=== PATIENT | male | born 1935 | race Caucasian/White ===

== ENCOUNTER 2016-07-11 06:26 | Day surgery (SDC) | payer OTHER ==
[~2016-07-11] VITALS: Ht 170.2 cm; Wt 74.8 kg
[~2016-07-11 06:26] MED LIST: 1-ME1LIQ PO; LANTUS2P SC; LEVO.025 PO; METO25 PO; PENT400 PO; SIMV20 PO
[2016-07-11] MEDS ORDERED: DEXTROSE 5% IV SCH ×2 (07:15)
[2016-07-11] MEDS ORDERED: WATE IV SCH ×2 (07:15)
[2016-07-11] MEDS ORDERED: SODIUM BICARBONATE IV SCH ×2 (07:15)
[2016-07-11] MEDS ORDERED: DO NOT GIVE AM GLUCOPHAGE, GLUCOPHAGE XR, GLIPIZIDE, GLYBURIDE OR AVANDAMET XX PRN (07:15)
[2016-07-11] MEDS ORDERED: TRAZ100T4 PO (07:16)
[2016-07-11] MEDS ORDERED: CALC1CAP PO (07:16)
[2016-07-11] MEDS ORDERED: INSU1INJ18 SQ (07:16)
[2016-07-11] MEDS ORDERED: PENT400T PO (07:16)
[2016-07-11 07:23] VITALS: BP 179/68; PULSE 69; RESP 16; TEMP 97.9; O2SAT 98
[2016-07-11 07:35] LABS: AUTOMATED NEUTROPHIL # 3.2 TH/MM3 (1.8-7.7); BASOPHIL % 0.8 % (0.0-2.0); EOSINOPHIL # 0.1 TH/MM3 (0-0.4); EOSINOPHIL % 2.6 % (0.0-4.0); HEMATOCRIT 32.3 % (39.0-51.0); HEMO FLAGS DIFF FINAL; LYMPH % 28.9 % (9.0-44.0); LYMPHOCYTE # 1.6 TH/MM3 (1.0-4.8); MEAN CELL VOLUME 94.7 FL (80.0-100.0); MEAN CORPUSCULAR HEMOGLOBIN 32.3 PG (27.0-34.0); MEAN CORPUSCULAR HGB CONC 34.1 % (32.0-36.0); MONO % 9.5 % (0.0-8.0); NEUT % 58.2 % (16.0-70.0); PLATELET COUNT 116 TH/MM3 (150-450); RED BLOOD COUNT 3.41 MIL/MM3 (4.50-5.90); RED CELL DISTRIBUTION WIDTH 14.8 % (11.6-17.2); WHITE BLOOD COUNT 5.5 TH/MM3 (4.0-11.0)
[2016-07-11 07:44] LABS: APTT (PATIENT) 25.2 SEC (24.3-30.1); PROTHROMBIN TIME - PATIENT 10.7 SEC (9.8-11.6)
[2016-07-11 07:49] LABS: BICARBONATE 30.4 MEQ/L (21.0-32.0)
[2016-07-11] MEDS ORDERED: HEPARIN-NS/PF INJ 500 ML ONE (09:27)
[2016-07-11] MEDS ORDERED: MIDAZOLAM HCL 2 MG/2 ML VIAL ONE (09:27)
[2016-07-11] MEDS ORDERED: HEPARIN SODIUM - IV 10,000 UNITS/10 ML VIAL ONE (09:27)
[2016-07-11] MEDS ORDERED: IOHEXOL 350 MG/ML 100 ML BTL (for Cath Lab) OTHER ONE (10:00)
[2016-07-11] MEDS ORDERED: ONDANSETRON HCL 4 MG/2 ML VIAL IV PRN (13:00)
[2016-07-11] MEDS ORDERED: ENALAPRILAT 1.25 MG/ML VIAL IV PRN (13:00)
[2016-07-11] MEDS ORDERED: LORazepam 2 MG/ML VIAL IVP PRN (13:00)
[2016-07-11] MEDS ORDERED: oxyCODONE/ACETAMINOPHEN 5 MG/325 MG TAB PO PRN ×2 (13:00)
[2016-07-11] MEDS ORDERED: METOCLOPRAMIDE HCL 10 MG/2 ML VIAL IVS PRN (13:00)
[2016-07-11] MEDS ORDERED: SODIUM NITROPRUSSIDE 50 MG/250 ML D5W IV SCH ×2 (13:00)
[2016-07-11] MEDS ORDERED: LIDOCAINE HCL 1% 50 ML VIAL INFIL PRN (13:00)
[2016-07-11] MEDS ORDERED: LABETALOL HCL 100 MG/20 ML VIAL IVP PRN (13:00)
[2016-07-11] MEDS ORDERED: HOLD GLUCOPHAGE, GLUCOPHAGE XR, AND AVANDAMET XX PRN (13:00)
[2016-07-11] MEDS ORDERED: ATROPINE SULFATE 1 MG/ML VIAL IV PUSH PRN (13:00)
[2016-07-11] MEDS ORDERED: cloNIDine HCL 0.1 MG TAB PO PRN (13:00)
[2016-07-11] MEDS ORDERED: SODIUM CHLOR 0.9% 250 ML IV PRN (13:00)
[2016-07-11] MEDS ORDERED: POTASSIUM CHLORIDE 20 MEQ CONTROLLED RELEASE TAB PO PRN (13:00)
--- NOTE | 2016-07-11 13:45 | MA ---
cc: NAIMA PICKARD DATE: 07/11/2016 PREOPERATIVE DIAGNOSIS Increased velocities on a right upper extremity fistulogram in the basilic vein concerning for narrowing with some difficulties with flow rates in the hemodialysis center. POSTOPERATIVE DIAGNOSIS Increased velocities on a right upper extremity fistulogram in the basilic vein concerning for narrowing with some difficulties with flow rates in the hemodialysis center. PROCEDURE 1. Right upper extremity fistulogram. 2. Balloon angioplasty right basilic vein with a 6 mm x 40 mm and then an 8 mm x 40 mm [employer]CHIT[employer] balloon angioplasty. SURGEON Kate IV FLUIDS 500 cc of sodium bicarb. ESTIMATED BLOOD LOSS Minimal. URINE OUTPUT Not calculated. DETAILS OF PROCEDURE The patient's right upper extremity was prepped and draped in a sterile fashion after being under moderate sedation. I got access to the right basilic vein using a 21-gauge needle. I exchanged for a micropuncture catheter and then I shot a fistulogram. Once I shot my fistulogram through my 4-Greek micropuncture catheter, I was able to see that the outflow basilic vein had a narrowing in the area that was found by duplex ultrasound in my office. It should be noted that the right innominate and subclavian as well as the SVC appeared to be widely patent. The arterial anastomosis with occlusion of the outflow vein at the level of the brachial artery appeared to be widely patent as well. I gave the patient approximately 3000 units of heparin. I performed balloon angioplasty with a 6 mm x 4 cm, then an 8 mm x 4 cm long [employer] angioplasty balloon. Afterwards there was still a mild diffuse tapered narrowing but there was a good thrill in the fistula and there was no extravasation or flow-limiting dissection. Based on this I removed my sheath and placed a 2-0 Vicryl pursestring suture around my sheath and then applied pressure with a dry dressing. The patient tolerated the procedure well and was taken to the PACU at the end of the case. DO DAPHNIE Snider/TERESITA /10:22 AM /1:37 PM
[2016-07-12] MEDS ORDERED: ASPIRIN EC 81 MG TABEC PO SCH (09:00)
== END 2016-07-11 12:45 | disposition home or self-care (01) ==
LOC: HDOC 06:26 → HDIC 06:27 → HDOC 12:45
PROVIDERS: ATTEND Surgery
DX: T82.858A Stenosis of other vascular prosthetic devices, implants and grafts, initial encounter (principal); N18.6 End stage renal disease; Z99.2 Dependence on renal dialysis
CPT/HCPCS: 37248; 75820; 80048; 85025; 85610; 85730; C1725; C1769; C1893; J1644; J2250; J3010; J7070; Q9967

== ENCOUNTER 2017-01-23 08:58 | Inpatient (IN) | payer OTHER, MEDICARE ==
[2017-01-23] VITALS (8 sets, daily range): BP systolic 148–151; BP diastolic 60–67; PULSE 62–74; RESP 14–16; TEMP 98.2–98.8; O2SAT 99
[~2017-01-23 08:58] MED LIST changes: -1-ME1LIQ PO; +CALC1CAP PO; +INSU1INJ18 SQ; -LANTUS2P SC; -LEVO.025 PO; -METO25 PO; -PENT400 PO; +PENT400T PO; -SIMV20 PO; +TRAZ100T4 PO
[2017-01-23] MEDS ORDERED: HYDROmorphone HCL 2 MG TAB PO PRN (17:00)
[2017-01-23] MEDS ORDERED: GLUCAGON 1 MG/ML VIAL OTHER PRN ×3 (17:15→18:15)
[2017-01-23] MEDS ORDERED: DEXTROSE 50% IN WATER 50 ML VIAL(D50) IV PRN ×2 (17:15→17:45)
[2017-01-23] MEDS ORDERED: PANTOPRAZOLE SOD 20 MG DELAYED RELEASE TAB PO ONE (18:00)
[2017-01-23] MEDS ORDERED: DEXTROSE 50% IN WATER 50 ML VIAL(D50) IV PUSH PRN (18:15)
[2017-01-23] MEDS: HEPARIN-D5W INJ 250 ML IV SCH (18:27)
--- NOTE | 2017-01-23 18:53 | HHI.HP ---
History of Present Illness Chief Complaint: Left Lower Extremity Pain Right LE with discolored Toes and pain History of Present Illness Mr. Sam is a 81/ Male who arrives as a Transfer from [facility]. Pt and daughter c/o LLE pain with discoloration times 1 month that worsened over the past few days. Daughter reported she brought her father to the emergency department ([facility]) because he was unable to ambulate due to pain. Pt with a PMH of DM,PVD, Kidney Failure (HD) and HTN. Pt reported he had a recent stent placed in is LLE 1M ago. (Darlene Means) Past/Family/Social History Past Medical History HTN PVD DM Kidney Failure (HD- T, Th and Sat) Past Surgical History Hip Surgery Social History Pt denies tobacco, alcohol or illicit drug usage Family History Leukemia DM HTN Hypercholesteremia (Darlene Means) Home Medications Reported Medications Trazodone 100 Mg [id number] Mg PO HS #30 TAB Ref 0 07/11/16 Pentoxifylline ER 400 Mg [id number] Mg PO BID #60 TAB Ref 0 07/11/16 Insulin Glargine (Basaglar Kwikpen)100 Unit/Ml Pen1 Units SQ DAILY #5 PEN Ref 0 07/11/16 Calcium Acetate (Phosphate Binder) 667 Mg [id number] Mg PO TID #90 CAP Ref 0 07/11/16 Coded Allergies: No Known Allergies (Unverified , 07/11/16) Review of Systems Integumentary: COMPLAINS OF: Abnormal pigmentation (Dusky L ankle to foot/ R toes w/ red discoloration) (Darlene Means) Physical Exam Neuro: Pt A&OX3 GCS15 Neck: No JVD Heart: RRR +S1,S2 Lungs: CTA Abdomen: S/NT Vascular: Palpable bilat femoral pulses Non Palpable bilat DP/PT Faint Monophasic Left DP, NO PT heard via Doppler Monophasic Right DP/ faint monophasic PT heard via Doppler LLE cool to touch/painful at rest and w/ movement/ Dusky pale discoloration from ankle to foot RLE warm to touch with reddened discoloration to toes (Darlene Means) Assessment and Plan Assessment: (1) Ischemia of lower extremity Status: Acute Plan Pt presents with LLE ischemia for 1M that worsened over the past few days. Plan Discussed Angiogram with patient and daughter Pt and daughter agreed w/ plan Questions answered Consents signed and placed in the chart Pt scheduled for an Angiogram w/ Dr. Vega tomorrow NPO after midnight Continue Heparin Drip Continue Pain Management Darlene ZIMMER [facility] [phone] (Darlene Means) Plan L LE critical limb ischemia. Pt with PAD and ESRD, on HD. L LE angiogram from OSH over a month ago suggested distal AT target. Will admit, consult nephrology and plan angiogram after HD tomorrow (Monday) with potential distal bypass Monday. Pt and his daughter aware of plan. Nabeel Vega MD FACS [employer] security rep [facility] - Heart and Vascular Surgery at [facility] [phone] (Nabeel Vega MD) Darlene Means Jan 23, 2017 18:53 Nabeel Vega MD Jan 23, 2017 19:36
[2017-01-23] MEDS: MEDIUM DOSE INSULIN NOVOLIN REGULAR SUPPLEMENTAL SCALE SQ SCH (21:00)
--- NOTE | 2017-01-23 21:15 | RADRPT ---
EXAM DATE/TIME: 01/23/2017 19:53 [facility] COMPARISON: No previous studies available for comparison. INDICATIONS : For potential graft; post graft. MEDICAL HISTORY : Hypertension. GERD. Renal failure. Dialysis. Diabetic. PAD. SURGICAL HISTORY : Right hip pinning. ENCOUNTER: Initial ACUITY: 1 day PAIN SCORE: 0/10 LOCATION: Bilateral leg. TECHNIQUE: Venous ultrasound of the left and right leg was performed from the inguinal ligament to the proximal calf. Real-time, color Doppler and spectral tracing, compression and augmentation techniques were us ed. FINDINGS: RIGHT LEG: There is normal compressibility of the deep venous system from the inguinal region to the proximal ca lf. No echogenic clot is seen in the lumen of the common femoral, femoral, popliteal, and posterior tibial veins. There is a normal response of the venous system to proximal and distal augmentation an d respiration. LEFT LEG: There is normal compressibility of the deep venous system from the inguinal region to the proximal ca lf. No echogenic clot is seen in the lumen of the common femoral, femoral, popliteal, and posterior tibial veins. There is a normal response of the venous system to proximal and distal augmentation an d respiration. CONCLUSION: The study is negative for deep venous thrombosis bilateral lower extremity. Vladislav Maria MD on January 23, 2017 at 21:13 Board Certified Radiologist. This report was verified electronically.
[2017-01-23] MEDS: DOCUSATE SODIUM 100 MG CAP PO SCH (22:38)
[2017-01-23] MEDS: ATORVASTATIN 40 MG TAB PO SCH (22:38)
--- NOTE | 2017-01-23 23:11 | RADRPT ---
EXAM DATE/TIME: 01/23/2017 19:59 [facility] COMPARISON: No previous studies available for comparison. INDICATIONS : For potential graft, post Graft. MEDICAL HISTORY : Hypertension. GERD. Renal failure. Dialysis. Diabetic. PAD. SURGICAL HISTORY : Right hip pinning. ENCOUNTER: Initial ACUITY: 1 day PAIN SCORE: 0/10 LOCATION: Bilateral leg. GREATER SAPHENOUS VEIN THIGH: PROXIMAL: Right 3 mm Left 7 mm MID: Right 3 mm Left 4 mm DISTAL: Right 2 mm Left 4 mm CALF: PROXIMAL: Right 1 mm Left 3 mm MID: Right 1 mm Left 3 mm DISTAL: Right 2 mm Left 3 mm FINDINGS: The venous system of the lower extremities are patent by color Doppler imaging. Measurements of the leg veins (in mm) are listed above. CONCLUSION: Venous mapping exam as described. Tony Dutton MD on January 23, 2017 at 23:09 Board Certified Radiologist. This report was verified electronically.
[2017-01-24] VITALS (17 sets, daily range): BP systolic 143–173; BP diastolic 62–71; PULSE 58–86; RESP 14–22; TEMP 97.3–98.8; O2SAT 93–99
[2017-01-24 01:24] LABS: HEMATOCRIT 26.8 % (39.0-51.0); MEAN CELL VOLUME 101.6 FL (80.0-100.0); MEAN CORPUSCULAR HGB CONC 33.5 % (32.0-36.0); PLATELET COUNT 117 TH/MM3 (150-450); RED BLOOD COUNT 2.64 MIL/MM3 (4.50-5.90); RED CELL DISTRIBUTION WIDTH 15.3 % (11.6-17.2); REVIEW FLAG FINAL; WHITE BLOOD COUNT 5.2 TH/MM3 (4.0-11.0)
[2017-01-24 01:40] LABS: PROTHROMBIN TIME - PATIENT 11.1 SEC (9.8-11.6)
[2017-01-24 02:01] LABS: BICARBONATE 25.8 MEQ/L (21.0-32.0); POTASSIUM 5.7 MEQ/L (3.5-5.1)
[2017-01-24] MEDS: MEDIUM DOSE INSULIN NOVOLIN REGULAR SUPPLEMENTAL SCALE SQ SCH ×4 (05:55→22:03)
[2017-01-24] MEDS: ASPIRIN 325 MG TAB PO SCH (08:15)
[2017-01-24] MEDS: DOCUSATE SODIUM 100 MG CAP PO SCH ×2 (08:15→21:52)
[2017-01-24 08:45] LABS: APTT (PATIENT) 129.8 SEC (24.3-30.1)
[2017-01-24] MEDS ORDERED: SODIUM CHLOR 0.9% 1000 ML INJ 1,000 ML IV PRN ×2 (11:42)
--- NOTE | 2017-01-24 11:42 | PD.CONS ---
HPI Service Nephrology Consult Requested By Dr. Veag Reason for Consult ESRD. Dialysis management Primary Care Physician Non-Staff History of Present Illness The patient is a 81 yo male who was transferred from [facility] to this facility today for vascular intervention of LLE. According to records from [facility] , he had a stent placed in RLE in November with angioplasty of LLE that was unsuccessful. He was treated medically as outpatient, but he returned to the ED at [facility] with complaints of worsening pain. He has subsequently been transferred to this facility for vascular surgery to attempt to salvage LLE. We have been consulted for dialysis management. Dialyzes TTS via [facility] in [place] with primary packager hand, Dr. Sterling. Last HD was Monday at [facility]. Surgery was supposed to be scheduled today, but has been canceled until tomorrow. The patient voiced no complaints today, but there is a language barrier. Review of Systems Cardiovascular: COMPLAINS OF: Claudication Past Family Social History Allergies: Coded Allergies: No Known Allergies (Unverified , 07/11/16) Past Medical History ESRD on HD TTS DM HTN Severe PVD Anemia BPH HLD Past Surgical History AVF formation Hipe replacement Stenting of RLE Reported Medications Reported Meds & Active Scripts Active Reported Trazodone (Trazodone HCl) 100 Mg Tab 100 Mg PO HS Pentoxifylline ER (Pentoxifylline) 400 Mg Tab 400 Mg PO BID Basaglar Kwikpen (Insulin Glargine) 100 Unit/Ml Pen 1 Units SQ DAILY Calcium Acetate (Phosphate Binder) 667 Mg Cap 667 Mg PO TID Active Ordered Medications Current Medications Medications (Trade) Dose Ordered Sig/Marta Route Start Time Stop Time Status Last Admin (Roxicodone) 5 mg Q4H PRN PO 01/23/17 17:00 (Dilaudid) 2 mg Q4H PRN PO 01/23/17 17:00 (Morphine Inj) 2 mg Q1H PRN IV 01/23/17 17:00 (Lipitor) 40 mg HS PO 01/23/17 21:00 01/23/17 22:38 Aspirin 325 mg 325 mg DAILY PO 01/24/17 09:00 01/24/17 08:15 (Heparin-D5W Inj) 250 ml @ 0 mls/hr TITRATE IV 01/23/17 17:45 01/23/17 18:27 (Colace) 100 mg BID PO 01/23/17 21:00 01/30/17 20:59 01/24/17 08:15 (D50w (Vial) Inj) 50 ml UNSCH PRN IV PUSH 01/23/17 18:15 (Glucagon Inj) 1 mg UNSCH PRN OTHER 01/23/17 18:15 Family History DM, HTN Social History Lives in [place] Denies any tobacco, illicits, or EtOH abuse Physical Exam Vital Signs Vital Signs Date Time Temp Pulse Resp B/P Pulse Ox O2 Delivery O2 Flow Rate FiO2 01/24/17 11:00 97.3 65 20 154/69 98 01/24/17 11:00 65 01/24/17 10:00 65 01/24/17 09:00 58 01/24/17 08:00 70 01/24/17 07:00 98.0 73 20 152/64 98 01/24/17 04:00 98.6 72 14 146/68 99 01/24/17 02:00 58 01/24/17 01:00 62 01/24/17 00:00 97.9 68 14 143/62 97 01/24/17 00:00 69 01/23/17 23:00 74 01/23/17 22:00 64 01/23/17 21:00 62 01/23/17 20:00 70 01/23/17 20:00 98.8 64 14 148/60 99 01/23/17 19:00 74 01/23/17 18:00 66 01/23/17 17:00 68 01/23/17 16:10 98.2 74 16 151/67 99 01/23/17 16:10 73 Physical Exam GENERAL: Comfortable, laying in bed. NAD SKIN: Warm and dry. HEAD: Atraumatic. Normocephalic. EYES: Pupils equal and round. No scleral icterus. No injection or drainage. ENT: No nasal bleeding or discharge. Mucous membranes pink and moist. NECK: Trachea midline. No JVD. CARDIOVASCULAR: Regular rate and rhythm. AVF present RUE. Dusky appearing LLE. RESPIRATORY: No accessory muscle use. Clear to auscultation. Breath sounds equal bilaterally. GASTROINTESTINAL: Abdomen soft, non-tender, nondistended. Hepatic and splenic margins not palpable. MUSCULOSKELETAL: Extremities without clubbing, cyanosis, or edema. No obvious deformities. NEUROLOGICAL: Awake and alert. No obvious cranial nerve deficits. Normal speech. PSYCHIATRIC: Appropriate mood and affect; insight and judgment normal. Laboratory Laboratory Tests Test 01/24/17 01/24/17 01:12 07:55 White Blood Count 5.2 Red Blood Count 2.64 Hemoglobin 9.0 Hematocrit 26.8 Mean Corpuscular Volume 101.6 Mean Corpuscular Hemoglobin 34.0 Mean Corpuscular Hemoglobin 33.5 Concent Red Cell Distribution Width 15.3 Platelet Count 117 Mean Platelet Volume 9.6 Prothrombin Time 11.1 Prothromb Time International 1.0 Ratio Activated Partial 62.0 129.8 Thromboplast Time Sodium Level 140 Potassium Level 5.7 Chloride Level 102 Carbon Dioxide Level 25.8 Anion Gap 12 Blood Urea Nitrogen 50 Creatinine 9.31 Estimat Glomerular Filtration 5 Rate Random Glucose 149 Calcium Level 8.6 Result Diagram: 01/24/17 0112 01/24/17 0112 Imaging Last Impressions Lower Extremity Ultrasound 01/23/17 0000 Signed Impressions: Service Date/Time: Monday, January 23, 2017 19:53 - CONCLUSION: The study is negative for deep venous thrombosis bilateral lower extremity. Vladislav Maria MD Assessment and Plan Problem List: (1) ESRD (end stage renal disease) on dialysis Plan: The patient typically dialyzes on TTS for 3h sessions. HD as ordered today. We would typically like dialysis after vascular procedure, but given his hyperkalemia, will require HD PRIOR to surgery. Discussed with RN who informed vascular-->surgery rescheduled until 01/25 Will plan for short HD session tomorrow after procedure (pulp machine operator contacted) Continue on phosphate binders Check iPTH and Vit D Medications should be adjusted for the patient's ESRD. Avoid gadolinium. (2) Ischemia of lower extremity Plan: Management as per vascular surgery (3) Diabetes mellitus Plan: Management as per primary (4) Anemia Plan: Epogen with tx as ordered Nasima Torres Jan 24, 2017 11:42
[2017-01-24] MEDS ORDERED: SODIUM CHLORIDE 0.9% FLUSH 10 ML FLUSH IV FLUSH PRN (11:45)
[2017-01-24] MEDS ORDERED: cloNIDine HCL 0.1 MG TAB PO PRN (11:45)
[2017-01-24] MEDS ORDERED: ACETAMINOPHEN 325 MG TAB PO PRN (11:45)
[2017-01-24] MEDS ORDERED: GELATIN 12 MM/7 MM FOAM TOP PRN (11:45)
[2017-01-24] MEDS ORDERED: NITROGLYCERIN 0.4 MG SL 25 TABS/BTL SL PRN (11:45)
[2017-01-24] MEDS ORDERED: ONDANSETRON HCL 4 MG/2 ML VIAL IV PRN (11:45)
[2017-01-24] MEDS ORDERED: diphenhydrAMINE HCL 25 MG CAP PO PRN (11:45)
[2017-01-24] MEDS ORDERED: ALBUMIN HUMAN 25% 25 GM/100 ML BAGP IV PRN (11:45)
[2017-01-24] MEDS ORDERED: MANNITOL 12.5 GM/50 ML VIAL IV PRN (11:45)
[2017-01-24] MEDS ORDERED: HEPARIN SODIUM - IV 10,000 UNITS/10 ML VIAL IVF PRN (11:45)
--- NOTE | 2017-01-24 11:46 | PD.VS.PN ---
Subjective Subjective/Hospital Course Pt in bed resting comfortably Denies pain Objective Vitals/I&O Date Time Temp Pulse Resp B/P Pulse Ox O2 Delivery O2 Flow Rate FiO2 01/24/17 11:00 97.3 65 20 154/69 98 01/24/17 11:00 65 01/24/17 10:00 65 01/24/17 09:00 58 01/24/17 08:00 70 01/24/17 07:00 98.0 73 20 152/64 98 01/24/17 04:00 98.6 72 14 146/68 99 01/24/17 02:00 58 01/24/17 01:00 62 01/24/17 00:00 97.9 68 14 143/62 97 01/24/17 00:00 69 01/23/17 23:00 74 01/23/17 22:00 64 01/23/17 21:00 62 01/23/17 20:00 70 01/23/17 20:00 98.8 64 14 148/60 99 01/23/17 19:00 74 01/23/17 18:00 66 01/23/17 17:00 68 01/23/17 16:10 98.2 74 16 151/67 99 01/23/17 16:10 73 Physical Exam GENERAL: A&OX3, GCS15, Lao speaking 81/M CARDIOVASCULAR: RRR RESPIRATORY: BS CTA Pt w/ Palpable bilat femoral pulses Non Palpable bilat DP/PT Faint Monophasic Left DP, NO PT heard via Doppler Monophasic Right DP/ faint monophasic PT heard via Doppler LLE cool to touch/painful at rest and w/ movement/ Dusky pale discoloration from ankle to foot RLE warm to touch with reddened discoloration to toes Laboratory Laboratory Tests Test 01/24/17 01/24/17 01:12 07:55 White Blood Count 5.2 Red Blood Count 2.64 Hemoglobin 9.0 Hematocrit 26.8 Mean Corpuscular Volume 101.6 Mean Corpuscular Hemoglobin 34.0 Mean Corpuscular Hemoglobin 33.5 Concent Red Cell Distribution Width 15.3 Platelet Count 117 Mean Platelet Volume 9.6 Prothrombin Time 11.1 Prothromb Time International 1.0 Ratio Activated Partial 62.0 129.8 Thromboplast Time Sodium Level 140 Potassium Level 5.7 Chloride Level 102 Carbon Dioxide Level 25.8 Anion Gap 12 Blood Urea Nitrogen 50 Creatinine 9.31 Estimat Glomerular Filtration 5 Rate Random Glucose 149 Calcium Level 8.6 Imaging Last 48 hours Impressions Lower Extremity Ultrasound 01/23/17 0000 Signed Impressions: Service Date/Time: Monday, January 23, 2017 19:53 - CONCLUSION: The study is negative for deep venous thrombosis bilateral lower extremity. Vladislav Maria MD Lower Extremity Ultrasound 01/23/17 0000 Signed Impressions: Service Date/Time: Monday, January 23, 2017 19:59 - CONCLUSION: Venous mapping exam as described. Tony Dutton MD Assessment and Plan Assessment: (1) Ischemia of lower extremity Status: Acute Plan L LE critical limb ischemia. Pt with PAD and ESRD, on HD. L LE angiogram from OSH over a month ago suggested distal AT target Plan HD today Angiogram scheduled for tomorrow am NPO after midnight Continue pain management Continue Heparin drip Darlene ZIMMER [facility]/[employer] [phone] Darlene Means Jan 24, 2017 11:45
[2017-01-24] MEDS: CALCIUM ACETATE 667 MG CAP PO SCH ×2 (13:00→17:59)
[2017-01-24] MEDS: HEPARIN-D5W INJ 250 ML IV SCH (14:10)
[2017-01-24 14:22] LABS: TRANSFERRIN IRON PROFILE 134 MG/DL (200-360)
[2017-01-24 14:25] LABS: FERRITIN 792 NG/ML (26-388)
--- NOTE | 2017-01-24 14:43 | RADRPT ---
EXAM DATE/TIME: 01/23/2017 00:00 [facility] COMPARISON: No previous studies available for comparison. INDICATIONS : Peripheral artery disease TECHNIQUE: Four-cuff ankle and brachial pressures were obtained. Pulse cuff waveform tracings of the ankles were recorded, and ankle-brachial indices were calculated. PRESSURES (mmHg): Brachial (arm): Right no bp/sticks Left 152 Ankle: Right 45 Left 29 HEATHER: Right 0.30 Left 0.19 TBI: Right 0.18 Left 0.00 PULSED CUFF WAVEFORMS: There is significantly decreased amplitude with monophasic pattern bilaterally. CONCLUSION: Examination demonstrates significant peripheral vascular disease with rest ischemia ABIs bilaterally. Further evaluation may be performed with conventional or CT angiography as indicated. Haroon Hendrickson MD on January 24, 2017 at 14:39 Board Certified Radiologist. This report was verified electronically.
--- NOTE | 2017-01-24 17:41 | RADRPT ---
EXAM DATE/TIME: 01/24/2017 16:55 [facility] COMPARISON: No previous studies available for comparison. INDICATIONS : Patient with a history of renal failure. MEDICAL HISTORY : HTN PVD DM ESRD LLE ischemia Thyroid disease SURGICAL HISTORY : Cataract removal Right hip pinning Bilateral ENCOUNTER: Initial ACUITY: 2 days PAIN SCORE: 8/10 LOCATION: Right claf FLUORO TIME: 0.1 minutes IMAGE SERIES: 1 ACCESS: Right internal jugular vein DEVICE(S): 1.) 14 [place] dual lumen 15 cm Vas Cath PROCEDURE : 1. Ultrasound guided venipuncture. 2. Fluoroscopic guidance. 3. Central line placement. The risks, benefits and alternatives to the procedure were explained and verbal and written consent w as obtained. The site was prepped in sterile fashion. Full sterile technique was used, including ca p, mask, sterile gloves and gown and a large sterile sheet. Hand hygiene and 2% chlorhexidine prep w as utilized per protocol for cutaneous antisepsis with appropriate dry time for site. The skin and subcutaneous tissues were infiltrated with local anesthetic solution. A suitable site a russ the vein was selected with ultrasound and fluoroscopic guidance. A small incision was made. Th e vein was accessed under direct ultrasound visualization using the micropuncture technique. The emelia ropuncture set was exchanged for a 0.035 wire. The tract was dilated. The catheter was advanced int o position under direct fluoroscopic visualization. The catheter was fixed in place with suture and a sterile dressing was applied. The patient tolerated the procedure well and there were no complications. CONCLUSION: Uncomplicated line placement as above. Haroon Hendrickson MD on January 24, 2017 at 17:39 Board Certified Radiologist. This report was verified electronically.
[2017-01-24] MEDS: EPOETIN ALFA 10,000 UNITS/ML VIAL IV PRN (19:16)
[2017-01-24] MEDS: GENTAMICIN SULFATE (DIALYSIS USE ONLY) 20 MG/2 ML VIAL IV PRN (19:17)
[2017-01-24] MEDS: SODIUM CHLOR 0.9% 1000 ML INJ 1,000 ML IV PRN (20:00)
[2017-01-24] MEDS: ATORVASTATIN 40 MG TAB PO SCH (21:52)
[2017-01-25] VITALS (22 sets, daily range): BP systolic 139–151; BP diastolic 56–76; PULSE 67–102; RESP 16–22; TEMP 97.4–99.3; O2SAT 96–99
[2017-01-25 04:12] LABS: HEMATOCRIT 26.7 % (39.0-51.0); MEAN CELL VOLUME 101.1 FL (80.0-100.0); MEAN CORPUSCULAR HEMOGLOBIN 34.8 PG (27.0-34.0); MEAN CORPUSCULAR HGB CONC 34.4 % (32.0-36.0); PLATELET COUNT 121 TH/MM3 (150-450); RED BLOOD COUNT 2.65 MIL/MM3 (4.50-5.90); RED CELL DISTRIBUTION WIDTH 15.5 % (11.6-17.2); REVIEW FLAG FINAL; WHITE BLOOD COUNT 5.7 TH/MM3 (4.0-11.0)
[2017-01-25 04:37] LABS: APTT (PATIENT) 43.6 SEC (24.3-30.1)
[2017-01-25 04:42] LABS: BICARBONATE 28.9 MEQ/L (21.0-32.0); POTASSIUM 4.6 MEQ/L (3.5-5.1)
[2017-01-25] MEDS: MEDIUM DOSE INSULIN NOVOLIN REGULAR SUPPLEMENTAL SCALE SQ SCH ×4 (06:11→20:37)
[2017-01-25] MEDS: HEPARIN-D5W INJ 250 ML IV SCH (06:19)
[2017-01-25] MEDS: DOCUSATE SODIUM 100 MG CAP PO SCH ×2 (10:13→20:28)
[2017-01-25] MEDS: CALCIUM ACETATE 667 MG CAP PO SCH ×3 (10:13→17:05)
[2017-01-25] MEDS: ASPIRIN 325 MG TAB PO SCH (10:13)
--- NOTE | 2017-01-25 13:06 | PD.VS.PN ---
Subjective Subjective/Hospital Course Pt in bed resting comfortably Awaits Angiogram NPO since midnight Denies pain Pt reported he had a BM yesterday (Darlene Means) Objective Vitals/I&O Date Time Temp Pulse Resp B/P Pulse Ox O2 Delivery O2 Flow Rate FiO2 01/25/17 12:00 69 01/25/17 11:00 102 01/25/17 11:00 97.4 86 16 141/56 98 01/25/17 10:00 88 01/25/17 09:17 96 01/25/17 07:00 98.0 80 18 151/67 97 01/25/17 06:00 75 01/25/17 05:00 71 01/25/17 04:09 99.3 79 22 139/76 97 01/25/17 04:00 75 01/25/17 03:00 70 01/25/17 02:44 99 01/25/17 02:00 78 01/25/17 01:00 73 01/25/17 00:00 75 01/24/17 23:37 98.8 75 18 156/62 99 01/24/17 23:00 79 01/24/17 23:00 18 01/24/17 22:00 80 01/24/17 21:00 98.7 86 22 173/71 99 01/24/17 21:00 86 01/24/17 16:57 93 01/24/17 14:00 70 01/25/17 01/25/17 01/25/17 07:00 15:00 23:00 Intake Total 288 ml Output Total 200 ml Balance 88 ml Physical Exam GENERAL: A&OX3,GCS15,NAD CARDIOVASCULAR: RRR RESPIRATORY: BS CTA Non Palpable bilat DP/PT Faint Monophasic Left DP, NO PT heard via Doppler Monophasic Right DP/ faint monophasic PT heard via Doppler (Darlene Means ) Laboratory Laboratory Tests Test 01/25/17 03:40 White Blood Count 5.7 Red Blood Count 2.65 Hemoglobin 9.2 Hematocrit 26.7 Mean Corpuscular Volume 101.1 Mean Corpuscular Hemoglobin 34.8 Mean Corpuscular Hemoglobin 34.4 Concent Red Cell Distribution Width 15.5 Platelet Count 121 Mean Platelet Volume 9.8 Activated Partial 43.6 Thromboplast Time Sodium Level 138 Potassium Level 4.6 Chloride Level 100 Carbon Dioxide Level 28.9 Anion Gap 9 Blood Urea Nitrogen 36 Creatinine 6.84 Estimat Glomerular Filtration 8 Rate Random Glucose 113 Calcium Level 8.3 Phosphorus Level 5.1 Albumin 2.8 Parathyroid Hormone (Intact) 361.2 Imaging Last 48 hours Impressions Catheter Placement X-Ray 01/24/17 0000 Signed Impressions: Service Date/Time: Tuesday, January 24, 2017 16:55 - CONCLUSION: Uncomplicated line placement as above. Haroon Hendrickson MD (Darlene Means) Assessment and Plan Assessment: (1) Ischemia of lower extremity Status: Acute Plan L LE critical limb ischemia. Pt with PAD and ESRD, on HD. L LE angiogram from OSH over a month ago suggested distal AT target Plan HD today Pt scheduled for angiogram then LLE distal bypass for tomorrow am Continue pain management Darlene ZIMMER [facility]/[employer] [phone] (Darlene Means) Plan Bypass tomorrow () with intra-operative angio HD today (1/2 run and then again Mon) (Nabeel Vega MD) Darlene Means Jan 25, 2017 13:05 Nabeel Vega MD Jan 25, 2017 14:11
[2017-01-25 13:09] LABS: APTT (PATIENT) 45.5 SEC (24.3-30.1)
--- NOTE | 2017-01-25 19:03 | HHI.NPPN ---
Subjective History of Present Illness The patient is a 81 yo male who was transferred from [facility] to this facility today for vascular intervention of LLE. According to records from [facility] , he had a stent placed in [facility] in November with angioplasty of LLE that was unsuccessful. He was treated medically as outpatient, but he returned to the ED at [facility] with complaints of worsening pain. He has subsequently been transferred to this facility for vascular surgery to attempt to salvage LLE. We have been consulted for dialysis management. [facility]zes TTS via R AVF in [place] with primary floor layer, Dr. Sterling. Interval History Patient with no verbal complaints. Unfortunately the dialysis shunt could not be used secondary to severe difficulty with cannulation. Temporary Vas-Cath has been placed. Secondary to technical problems patient's angiogram and probable bypass surgery has been postponed until tomorrow Objective Data Data 01/24/17 01/25/17 19:00 07:00 Intake Total 264 ml 288 ml Output Total 100 ml 2200 ml Balance 164 ml -1912 ml Intake Oral 120 ml 240 ml IV Total 144 ml 48 ml Output Urine Total 100 ml 200 ml Hemodialysis 2000 ml Vital Signs Date Time Temp Pulse Resp B/P Pulse Ox O2 Delivery O2 Flow Rate FiO2 01/25/17 18:20 84 01/25/17 17:12 67 01/25/17 13:00 98 01/25/17 12:00 69 01/25/17 11:00 102 01/25/17 11:00 97.4 86 16 141/56 98 01/25/17 10:00 88 01/25/17 09:17 96 01/25/17 07:00 98.0 80 18 151/67 97 01/25/17 06:00 75 01/25/17 05:00 71 01/25/17 04:09 99.3 79 22 139/76 97 01/25/17 04:00 75 01/25/17 03:00 70 01/25/17 02:44 99 01/25/17 02:00 78 01/25/17 01:00 73 01/25/17 00:00 75 01/24/17 23:37 98.8 75 18 156/62 99 01/24/17 23:00 79 01/24/17 23:00 18 01/24/17 22:00 80 01/24/17 21:00 98.7 86 22 173/71 99 01/24/17 21:00 86 -: 01/25/17 0340 01/25/17 0340 Tubes & Lines: Vas-Cath Medication Review Current Medications Oxycodone HCl (Roxicodone) 5 mg Q4H PRN PO PAIN SCALE 1 TO 5; Start 01/23/17 at 17:00 Hydromorphone HCl (Dilaudid) 2 mg Q4H PRN PO PAIN SCALE 6 TO 10 Last administered on 01/24/17 21:52; Start 01/23/17 at 17:00 Morphine Sulfate (Morphine Inj) 2 mg Q1H PRN IV BREAKTHROUGH PAIN; Start at 17:00 Atorvastatin Calcium (Lipitor) 40 mg HS PO Last administered on 01/24/17 21:52 ; Start 01/23/17 at 21:00 Dextrose (D50w (Vial) Inj) 50 ml UNSCH PRN IV HYPOGLYCEMIA-SEE COMMENTS; Start 01/23/17 at 17:15; Stop 01/23/17 at 18:06; Status DC Glucagon (Glucagon Inj) 1 mg UNSCH PRN OTHER HYPOGLYCEMIA-SEE COMMENTS; Start 01/23/17 at 17:15; Stop 01/23/17 at 18:06; Status DC Aspirin (Aspirin) 325 mg DAILY PO Last administered on 01/25/17 10:13; Start at 09:00 Pantoprazole Sodium 20 mg 20 mg ONCE ONCE PO Last administered on 01/23/17 18 :22; Start 01/23/17 at 18:00; Stop 01/23/17 at 18:01; Status DC Heparin Sodium/ Dextrose (Heparin-D5W Inj) 250 ml @ 0 mls/hr TITRATE IV Last administered on 01/25/17 06:19; Start 01/23/17 at 17:45 Dextrose (D50w (Vial) Inj) 50 ml UNSCH PRN IV HYPOGLYCEMIA-SEE COMMENTS; Start 01/23/17 at 17:45; Stop 01/23/17 at 18:11; Status DC Glucagon (Glucagon Inj) 1 mg UNSCH PRN OTHER HYPOGLYCEMIA-SEE COMMENTS; Start 01/23/17 at 17:45; Stop 01/23/17 at 18:11; Status DC Docusate Sodium (Colace) 100 mg BID PO Last administered on 01/25/17 10:13; Start 01/23/17 at 21:00; Stop 01/30/17 at 20:59 Dextrose (D50w (Vial) Inj) 50 ml UNSCH PRN IV PUSH HYPOGLYCEMIA - SEE COMMENTS ; Start 01/23/17 at 18:15 Glucagon (Glucagon Inj) 1 mg UNSCH PRN OTHER HYPOGLYCEMIA-SEE COMMENTS; Start 01/23/17 at 18:15 Insulin Human Regular 1 1 ACHS SLIDING SCALE SQ Last administered on 01/25/17 16:00; Start 01/23/17 at 21:00 Sodium Chloride (NS 1000 ml Inj) 1,000 ml @ 0 mls/hr Q0M PRN IV For Prime & Rinse Back Last administered on 01/24/17 20:00; Start 01/24/17 at 11:42 Heparin Sodium (Porcine) 8000 units 8,000 units UNSCH PRN IVF WITH DIALYSIS; Start 01/24/17 at 11:45 Sodium Chloride 1,000 ml @ 200 mls/hr Q5H PRN IV WITH DIALYSIS; Start 01/24/17 at 11:42 Sodium Chloride (NS 1000 ml Inj) 1,000 ml @ 0 mls/hr Q0M PRN IV WITH DIALYSIS; Start 01/24/17 at 11:42 Mannitol (Mannitol Inj) 12.5 gm UNSCH PRN IV WITH DIALYSIS; Start 01/24/17 at 11 :45 Albumin Human (Albumin 25% Inj) 25 gm UNSCH PRN IV WITH DIALYSIS; Start at 11:45 Sodium Chloride (NS Flush) 5 ml UNSCH PRN IV FLUSH WITH DIALYSIS; Start at 11:45 Heparin Sodium (Porcine) (Heparin Inj) UNSCH PRN .XX WITH DIALYSIS; Start 01/24 at 11:45 Gentamicin Sulfate (Gentamicin (Dialysis) Inj) 20 mg UNSCH PRN IV WITH DIALYSIS Last administered on 01/24/17 19:17; Start 01/24/17 at 11:45 Ondansetron HCl (Zofran Inj) 4 mg UNSCH PRN IV WITH DIALYSIS; Start 01/24/17 at 11:45 Acetaminophen (Tylenol) 650 mg UNSCH PRN PO for headach,temp > 101F; Start 01/24 at 11:45 Diphenhydramine HCl (Benadryl) 25 mg UNSCH PRN PO for hives/itching/anaphylaxis ; Start 01/24/17 at 11:45 Nitroglycerin (Nitrostat Sl) 0.4 mg UNSCH PRN SL CHEST PAIN; Start 01/24/17 at 11:45 Clonidine (Catapres) 0.1 mg UNSCH PRN PO for BP > 180/100 X 2 readings; Start 01/24/17 at 11:45 Epoetin Levy (Epogen Inj) 2,000 units UNSCH PRN IV WITH DIALYSIS Last administered on 01/24/17 19:16; Start 01/24/17 at 11:45 Gelatin (Gelfoam 12 Mm/7 Mm Top) 1 foam UNSCH PRN TOP SEE LABEL COMMENTS; Start 01/24/17 at 11:45 Calcium Acetate (Phoslo) 2,001 mg TID PO Last administered on 01/25/17 17:05; Start 01/24/17 at 13:00 Heparin Sodium (Porcine) (*HEPARIN INJ Periprocedural ONLY) 10,000 units STK- MED ONCE .ROUTE Last administered on 01/24/17 16:43; Start 01/24/17 at 16:43; Stop 01/24/17 at 16:44; Status DC Physical Exam General Appearance: No Acute Distress, Comfortable Eyes Eye Exam: Sclera White Pulmonary Resp Exam: Clear Bilaterally, Breath Sounds Equal, No Distress Cardiology CV Exam: Regular, Normal Sinus Rhythm, Good Perfusion Gastrointestinal/Abdomen GI Exam: Soft, Non-Tender Assessment/Plan Problem List: (1) ESRD (end stage renal disease) on dialysis Plan: Because surgery has been rescheduled for tomorrow will proceed with dialysis today to avoid scheduling conflicts and avoid potential for hyperkalemia preoperative as occurred yesterday. The patient will require conversion of the Vas-Cath to hemodialysis PermCath prior to discharge. We'll tentatively plan for this procedure Monday. I will defer subsequent management of dialysis access to his outpatient floor layer in [place]. Continue on phosphate binders Check iPTH and Vit D Medications should be adjusted for the patient's ESRD. Avoid gadolinium. (2) Ischemia of lower extremity Plan: Management as per vascular surgery (3) Diabetes mellitus Plan: Management as per primary (4) Anemia Plan: Epogen with tx as ordered Niru Long MD Jan 25, 2017 19:03
[2017-01-25] MEDS: ATORVASTATIN 40 MG TAB PO SCH (20:28)
[2017-01-26] VITALS (17 sets, daily range): BP systolic 138–167; BP diastolic 52–65; PULSE 61–78; RESP 18–20; TEMP 98.3–99.2; O2SAT 95–98
[2017-01-26] MEDS: MEDIUM DOSE INSULIN NOVOLIN REGULAR SUPPLEMENTAL SCALE SQ SCH ×4 (05:46→21:00)
[2017-01-26 06:25] LABS: MEAN CELL VOLUME 100.7 FL (80.0-100.0); MEAN CORPUSCULAR HEMOGLOBIN 35.1 PG (27.0-34.0); MEAN CORPUSCULAR HGB CONC 34.8 % (32.0-36.0); PLATELET COUNT 106 TH/MM3 (150-450); RED BLOOD COUNT 2.49 MIL/MM3 (4.50-5.90); RED CELL DISTRIBUTION WIDTH 15.6 % (11.6-17.2); REVIEW FLAG FINAL; WHITE BLOOD COUNT 6.3 TH/MM3 (4.0-11.0)
[2017-01-26 06:35] LABS: APTT (PATIENT) 75.3 SEC (24.3-30.1)
[2017-01-26] MEDS: DOCUSATE SODIUM 100 MG CAP PO SCH ×2 (09:00→20:25)
[2017-01-26] MEDS: CALCIUM ACETATE 667 MG CAP PO SCH ×3 (09:00→18:00)
[2017-01-26] MEDS: ASPIRIN 325 MG TAB PO SCH (09:00)
[2017-01-26] MEDS ORDERED: INSULIN HUMAN REGULAR 1,000 UNITS/10 ML VIAL SQ PRN (10:45)
[2017-01-26] MEDS ORDERED: POVIDONE IODINE 5% (ANTISEPSIS KIT) 4 APPLICATIONS EACH NARE PRN (10:45)
[2017-01-26] MEDS ORDERED: CHLORHEXIDINE GLUCONATE 2 % 1 PACK (2 CLOTHS) TOPICAL PRN (10:45)
[2017-01-26] MEDS ORDERED: METOPROLOL TARTRATE 25 MG TAB PO PRN (10:45)
[2017-01-26] MEDS ORDERED: LACTATED RINGER'S 1000 ML IV PRN (11:00)
[2017-01-26] MEDS ORDERED: SODIUM CHLORID 0.9% 500 ML IV PRN (11:00)
[2017-01-26] MEDS ORDERED: ePHEDrine/NS 25 MG/5 ML SYR IV ONE (12:00)
[2017-01-26] MEDS ORDERED: PHENYLEPH/NS 1000 MCG/10 ML SYR IV ONE (12:00)
[2017-01-26] MEDS ORDERED: SODIUM CHLORID 0.9% 500 ML INJ 500 ML IV ONE (12:00)
[2017-01-26] MEDS ORDERED: PROPOFOL 200 MG/20 ML AMP IV ONE (12:00)
[2017-01-26] MEDS ORDERED: NEOSTIGMINE 3 MG/3 ML SYR IV ONE (12:00)
[2017-01-26] MEDS ORDERED: BUPIVACAINE HCL PF 0.5% 30 ML VIAL ONE (13:15)
[2017-01-26] MEDS ORDERED: HEPARIN SODIUM - IV 10,000 UNITS/10 ML VIAL ONE ×2 (13:15→14:56)
[2017-01-26] MEDS ORDERED: ceFAZolin 2 GM PREMIX 50 ML ONE (13:16)
[2017-01-26] MEDS ORDERED: PROTAMINE SULFATE 50 MG/5 ML VIAL ONE (13:16)
[2017-01-26] MEDS ORDERED: VANCOMYCIN HCL 1000 MG VIAL ONE (13:27)
[2017-01-26] MEDS ORDERED: SODIUM CHLOR 0.9% 250 ML INJ 250 ML ONE (13:27)
[2017-01-26] MEDS ORDERED: IOHEXOL 300 MG/ML 50 ML BTL (for RAD DIAG) OTHER ONE (14:00)
[2017-01-26] MEDS ORDERED: THROMBIN (TOPICAL) 20,000 UNIT SPRAY KIT ONE (16:01)
[2017-01-26] MEDS ORDERED: ceFAZolin 2 GM PREMIX 50 ML IV SCH (16:30)
[2017-01-26] MEDS ORDERED: VANCOMYCIN INJ 1,000 MG in SODIUM CHLOR 0.9% 250 ML INJ 250 ML IV SCH (16:30)
--- NOTE | 2017-01-26 16:40 | HHI.PR ---
Immediate Post Op Note Procedure Date: Jan 26, 2017 Pre Op Diagnosis: PAD w/ L LE tissue loss Post Op Diagnosis: PAD w/ L LE tissue loss Surgeon: Nabeel Vega Biofuels Manager(s): Adam Lozano Procedure: 1. Aortogram w/ L LE angiogram 2. L SOUP PERSON-AT bypass with cryo Findings: very diseased blood vessels Palpable graft pulse and Doppler signal on foot at conclusion of case Complications: none Specimen(s) removed: none Estimated blood loss: 100mL Anesthesia: General Drains: None Fluids: 700mL IVF Patient to: PACU Patient Condition: Good Implant/Devices: SEE IMPLANT LOG (if applicable) Date/Time of Procedure: SEE SURGICAL CARE RECORD Nabeel Vega MD Jan 26, 2017 16:40
[2017-01-26] MEDS ORDERED: MORPHINE SULFATE 4 MG/ML INJ IV PRN (16:45)
[2017-01-26] MEDS ORDERED: HEPARIN-D5W INJ 250 ML IV SCH (16:45)
[2017-01-26] MEDS ORDERED: HYDROmorphone HCL 2 MG TAB PO PRN (16:45)
[2017-01-26] MEDS ORDERED: fentaNYL CITRATE 250 MCG/5 ML AMP ONE (17:12)
[2017-01-26 18:48] LABS: HEMATOCRIT 23.5 % (39.0-51.0); MEAN CELL VOLUME 101.1 FL (80.0-100.0); MEAN CORPUSCULAR HEMOGLOBIN 35.2 PG (27.0-34.0); MEAN CORPUSCULAR HGB CONC 34.8 % (32.0-36.0); PLATELET COUNT 102 TH/MM3 (150-450); RED BLOOD COUNT 2.33 MIL/MM3 (4.50-5.90); RED CELL DISTRIBUTION WIDTH 15.5 % (11.6-17.2); REVIEW FLAG FINAL; WHITE BLOOD COUNT 6.4 TH/MM3 (4.0-11.0)
[2017-01-26 19:02] LABS: BICARBONATE 27.3 MEQ/L (21.0-32.0); POTASSIUM 4.4 MEQ/L (3.5-5.1)
[2017-01-26 19:27] LABS: APTT (PATIENT) 28.6 SEC (24.3-30.1); INTERNATIONAL NORMALIZED RATIO 1.1 RATIO; PROTHROMBIN TIME - PATIENT 11.7 SEC (9.8-11.6)
[2017-01-26] MEDS ORDERED: DO NOT ADM ANY ANTICOAGULANT DRUGS PRN (20:15)
[2017-01-26] MEDS: MORPHINE SULFATE 4 MG/ML INJ IV PRN (20:26)
[2017-01-26] MEDS: ATORVASTATIN 40 MG TAB PO SCH (20:27)
[2017-01-27] VITALS (21 sets, daily range): BP systolic 121–135; BP diastolic 52–84; PULSE 82–100; RESP 18–24; TEMP 97.4–100.9; O2SAT 93–98
[2017-01-27 01:07] LABS: APTT (PATIENT) 24.3 SEC (24.3-30.1)
[2017-01-27] MEDS: HEPARIN-D5W INJ 250 ML IV SCH (06:04)
[2017-01-27] MEDS: MORPHINE SULFATE 4 MG/ML INJ IV PRN (06:12)
--- NOTE | 2017-01-27 06:42 | MP ---
cc: OSCAR VEGA MD DATE OF SURGERY 01/26/2017 PREOPERATIVE DIAGNOSIS Left lower extremity ischemia, tissue loss, peripheral arterial disease POSTOPERATIVE DIAGNOSIS Left lower extremity ischemia, tissue loss, peripheral arterial disease PROCEDURE 1. Ultrasound guided access to right common femoral artery. 2. Aortogram with left lower extremity angiogram. 3. Left common femoral artery to anterior tibial artery bypass with cryopreserved vein MEDICATIONS Oscar Vega MD GAME ENGINEER SURGEON Adam Lozano ANESTHESIA General INDICATIONS Mr. Sam is a 81-year gentleman with end-stage renal disease and peripheral arterial occlusive disease. He presented with left leg tissue loss and prior attempts at endovascular therapy at outside institutions that failed. He was taken to the operating room for definitive revascularization. There is no prior cath based imaging available for my review. DESCRIPTION OF PROCEDURE Informed consent was obtained from the patient. He was taken to the operating room, placed supine on the operating table. An appropriate time-out was taken to ensure the patient's identity, operative site and planned procedure. Administration of a gram of vancomycin was initiated prior to skin incision and will be discontinued after a single preoperative dose. Vancomycin was chosen because of the patient's end-stage renal disease. Everyone in the room agreed with the time-out and we proceeded. He was prepped from his nipples to the knees. Under ultrasonographic guidance, the right common femoral artery was accessed with a 21 gauge micropuncture needle. This was exchanged using Seldinger technique for micropuncture sheath through which a 0.035 Glidewire was introduced. The micro sheath was changed for a 4-Albanian sheath and a VCF catheter was placed over the wire into the sheath. An aortogram was obtained. The Glidewire was reintroduced, navigated down to the left common femoral artery and the VCF catheter was advanced over this and a left lower extremity arteriogram was obtained. The wire catheter and sheath were removed and pressure was held for hemostasis. The patient has a patent infrarenal aorta without any hemodynamically significant stenoses. The common iliac arteries, external arteries are patent without any hemodynamically significant stenoses. The left common femoral artery is patent. The profunda is diseased, but patent. The SFA is patent, but diseased down to the mid SFA at which point it occludes. The popliteal artery is occluded. The peroneal artery and posterior tibial artery is occluded. Collaterals reconstitute the distal anterior tibial artery which continues on down to the foot. This was felt to the best option for the target for the bypass. A vertical incision was made in the patient's left groin, carried down through the subcutaneous tissue with electrocautery. The common femoral artery was identified, dissected free for several centimeters. It was noted to have a nice pulse. A separate incision made just above foot on the left hand side, carried down through the subcutaneous tissue between the anterior and lateral foot compartments. The anterior tibial artery was identified and dissected free. It was noted to be calcified and thought to be reasonably sufficient to clamp for bypass. A counterincision was made on the lateral aspect of the thigh and carried down to just below the fascia. A tunnel was then created between the two proximal and two distal incisions. The cryopreserved tissue was then brought up onto the field and prepped in the standard fashion and flushed and this was confirmed to be hemostatic. The patient was systemically heparinized and the ACT was confirmed to be greater than 250. Proximal and distal control of the common femoral artery was obtained with Profunda clamps and a longitudinal arteriotomy was made with an 11 blade and extended with [place] scissors. The cryo vein was spatulated and sewn end-to-side with running 5-0 Prolene suture. At the completion, it was flushed and noted to be hemostatic. Hemoclips were placed on the distal aspect of the graft and the graft was distended and marked for orientation. It was then carefully passed through the tunnels first in a subsartorial plane out the lateral aspect of the distal thigh and then in a subcuticular plane down to the level of the foot. Proximal and distal control of the distal anterior tibial artery was obtained with profunda clamps and a longitudinal arteriotomy was made with an 11 blade and extended with Willem scissors. The graft was cut to an appropriate length, spatulated and sewn end-to-side with running 6-0 Prolene suture. At the completion, it was flushed and hemostatic. All the clamps were released. He has a nice graft pulse and a Doppler signal in the dorsalis pedis. The heparin reversed with protamine. The wounds were made hemostatic and all three wounds were closed 2-0 Polysorb, 3-0 Polysorb and 4-0 Monocryl. The sponge and needle counts were correct at the end of the case. I was present and scrubbed and performed the entire procedure. MD BON Metzger/ROSAURA /4:45 AM /6:27 AM MTDAniyah
[2017-01-27 06:43] LABS: HEMATOCRIT 22.6 % (39.0-51.0); MEAN CELL VOLUME 100.7 FL (80.0-100.0); MEAN CORPUSCULAR HEMOGLOBIN 34.4 PG (27.0-34.0); MEAN CORPUSCULAR HGB CONC 34.2 % (32.0-36.0); PLATELET COUNT 114 TH/MM3 (150-450); RED BLOOD COUNT 2.24 MIL/MM3 (4.50-5.90); RED CELL DISTRIBUTION WIDTH 15.7 % (11.6-17.2); REVIEW FLAG FINAL
[2017-01-27 06:57] LABS: BICARBONATE 27.3 MEQ/L (21.0-32.0)
[2017-01-27] MEDS: MEDIUM DOSE INSULIN NOVOLIN REGULAR SUPPLEMENTAL SCALE SQ SCH ×5 (07:00→23:56)
--- NOTE | 2017-01-27 08:51 | PD.VS.PN ---
Subjective POD #: 1 Procedure(s): L fem-AT with cryo, angiogram Subjective/Hospital Course Saw pt en route to HD; no distress Objective Vitals/I&O Date Time Temp Pulse Resp B/P Pulse Ox O2 Delivery O2 Flow Rate FiO2 01/27/17 07:22 16 01/27/17 07:22 16 01/27/17 07:00 96 01/27/17 01:00 90 01/27/17 00:00 99 01/27/17 00:00 97.4 99 20 130/52 98 01/26/17 23:00 72 01/26/17 22:00 70 01/26/17 21:00 70 01/26/17 20:00 75 01/26/17 20:00 78 20 167/65 96 01/26/17 19:00 68 01/26/17 17:44 97.3 66 12 159/71 99 Nasal Cannula 2 01/26/17 17:30 66 20 162/70 99 Nasal Cannula 2 01/26/17 17:20 98 Nasal Cannula 2.00 01/26/17 17:15 74 23 158/65 100 Nasal Cannula 2 01/26/17 17:00 80 17 156/67 99 Nasal Cannula 2 01/26/17 16:56 97.5 88 15 144/64 100 Nasal Cannula 3 01/26/17 10:27 98 01/26/17 09:00 71 01/27/17 01/27/17 01/27/17 06:59 14:59 22:59 Intake Total 0 ml Balance 0 ml Exam: L leg incisions covered counter (distal thigh incision) ok foot warm + graft pulse Laboratory Laboratory Tests Test 01/26/17 01/26/17 01/26/17 01/27/17 11:10 11:15 17:17 00:19 Blood Type O POSITIVE O POSITIVE Antibody Screen NEGATIVE Crossmatch Leukocyte-Reduced Red Blood Cells Blood Bank Comment White Blood Count 6.4 Red Blood Count 2.33 Hemoglobin 8.2 Hematocrit 23.5 Mean Corpuscular Volume 101.1 Mean Corpuscular Hemoglobin 35.2 Mean Corpuscular Hemoglobin 34.8 Concent Red Cell Distribution Width 15.5 Platelet Count 102 Mean Platelet Volume 10.7 Prothrombin Time 11.7 Prothromb Time International 1.1 Ratio Activated Partial 28.6 24.3 Thromboplast Time Sodium Level 137 Potassium Level 4.4 Chloride Level 99 Carbon Dioxide Level 27.3 Anion Gap 11 Blood Urea Nitrogen 34 Creatinine 6.93 Estimat Glomerular Filtration 8 Rate Random Glucose 133 Calcium Level 8.0 Test 01/27/17 05:45 White Blood Count 7.0 Red Blood Count 2.24 Hemoglobin 7.7 Hematocrit 22.6 Mean Corpuscular Volume 100.7 Mean Corpuscular Hemoglobin 34.4 Mean Corpuscular Hemoglobin 34.2 Concent Red Cell Distribution Width 15.7 Platelet Count 114 Mean Platelet Volume 10.2 Sodium Level 135 Potassium Level 5.0 Chloride Level 98 Carbon Dioxide Level 27.3 Anion Gap 10 Blood Urea Nitrogen 42 Creatinine 8.02 Estimat Glomerular Filtration 7 Rate Random Glucose 174 Calcium Level 7.7 Assessment and Plan Assessment: (1) Ischemia of lower extremity Status: Acute Plan Patent bypass foot warm 1. Cont hep gtt 2. PT/OOB 3. HD today Nabeel Vega MD Jan 27, 2017 08:51
[2017-01-27] MEDS: ASPIRIN 325 MG TAB PO SCH (09:00)
[2017-01-27] MEDS: DOCUSATE SODIUM 100 MG CAP PO SCH ×2 (09:00→20:35)
[2017-01-27] MEDS: CALCIUM ACETATE 667 MG CAP PO SCH ×3 (09:00→18:00)
[2017-01-27] MEDS: GENTAMICIN SULFATE (DIALYSIS USE ONLY) 20 MG/2 ML VIAL IV PRN (09:11)
[2017-01-27] MEDS: EPOETIN ALFA 10,000 UNITS/ML VIAL IV PRN (09:11)
[2017-01-27] MEDS: HEPARIN SODIUM - IV 10,000 UNITS/10 ML VIAL PRN (09:11)
[2017-01-27] MEDS: SODIUM CHLOR 0.9% 1000 ML INJ 1,000 ML IV PRN (09:11)
[2017-01-27] MEDS ORDERED: MIDAZOLAM HCL 2 MG/2 ML VIAL ONE (11:27)
[2017-01-27] MEDS ORDERED: fentaNYL CITRATE 250 MCG/5 ML AMP ONE (11:27)
[2017-01-27] MEDS ORDERED: LIDOCAINE 1%/EPINEPHrine 1:100,000 SOLN 20 ML VIAL ONE (11:52)
--- NOTE | 2017-01-27 12:33 | PD.RAD ---
Post Procedure Progress Note Pre Procedure Diagnosis: (1) ESRD (end stage renal disease) on dialysis Post Procedure Diagnosis: (1) ESRD (end stage renal disease) on dialysis Procedure Date: Jan 27, 2017 Supervising Radiologist: Haroon Hendrickson Proceduralist/Assist: Maik Ocasio, RT(R), Tana Alvarez RT(R)() Anesthesia: Conscious Sedation Plan of Activity Patient to Unit: ROPU Patient Condition: Good Additional Comments: Placed 19cm right IJ HD cath See PACS Report for procedural detail/treatment Haroon Hendrickson MD Jan 27, 2017 12:33
[2017-01-27] MEDS ORDERED: HEPARIN SODIUM - IV 2,000 UNITS/2 ML VIAL IV FLUSH PRN (12:45)
[2017-01-27] MEDS ORDERED: SODIUM CHLORIDE 0.9% FLUSH 10 ML FLUSH IVF PRN (12:45)
--- NOTE | 2017-01-27 13:13 | RADRPT ---
EXAM DATE/TIME: 01/27/2017 00:00 [facility] COMPARISON: No previous studies available for comparison. INDICATIONS : Patient with history of renal failure in need of vascath removal and permcath placement. MEDICAL HISTORY : HTN PVD DM Kidney Failure (HD- T, Th and Sat) SURGICAL HISTORY : Hip Surgery ENCOUNTER: Subsequent ACUITY: > 1 year PAIN SCORE: 0/10 IMAGE SERIES: PROCEDURE : 1. Temporary central venous catheter removal. The prescribed catheter was removed intact and hemostasis was achieved with direct pressure. The sit e was dressed appropriately. The patient tolerated the procedure well. CONCLUSION: Uncomplicated catheter removal. Haroon Hendrickson MD on January 27, 2017 at 13:11 Board Certified Radiologist. This report was verified electronically.
--- NOTE | 2017-01-27 13:13 | RADRPT ---
EXAM DATE/TIME: 01/24/2017 16:55 [facility] COMPARISON: PERM CV CATH PLCMT W US RIGHT, January 19, 2016, 17:25. INDICATIONS : Patient with history of renal failure in need of permcath placement. MEDICAL HISTORY : HTN PVD DM Kidney Failure (HD- T, Th and Sat) SURGICAL HISTORY : Hip surgery ENCOUNTER: Subsequent ACUITY: >1 year PAIN SCORE: 0/10 FLUORO TIME: 0.1 minutes IMAGE SERIES: 0 SEDATION TIME: 15 minutes ACCESS: Right internal jugular vein SEDATION: 1.) 1.5 mg midazolam (Versed) IV 2.) 100 mcg fentanyl (Sublimaze) IV Prophylactic antibiotics were administered with appropriate pre-procedure timing. Vancomycin within 2 hours of procedure, Ancef (or alternative) within 1 hour of procedure. DEVICE: 1. 15 Ukrainian dual lumen 19 cm Nguyễn II Plus catheter PROCEDURE : 1. Ultrasound-guided venipuncture. 2. PermaCath placement. 3. Conscious sedation with continuous EKG and oximetry monitoring. The risks, benefits and alternatives to the procedure were explained and verbal and written consent w as obtained. The site was prepped in sterile fashion. Full sterile technique was used, including ca p, mask, sterile gloves and gown and a large sterile sheet. Hand hygiene and 2% chlorhexidine and/or betadine/alcohol prep was utilized per protocol for cutaneous antisepsis. The skin and subcutaneous tissues were infiltrated with local anesthetic solution. With ultrasound and fluoroscopic guidance a dermatotomy was created over the prescribed vein. A micr opuncture set was used to access the targeted vein and serial dilatation was performed to accept the prescribed length catheter. A subcutaneous tunnel was created in a retrograde fashion the catheter w as pulled through the tunnel. The catheter was flushed and assembled and locked with heparin. The c atheter was sutured in place. Conscious sedation was performed with the prescribed dosages and duration as above in the presence of an independent trained radiology nurse to assist in the monitoring of the patient. EKG and oximetry remained stable throughout the procedure. The patient tolerated the procedure well and there were n o complications. The patient was sent to post anesthesia recovery in stable condition. CONCLUSION: Uncomplicated PermaCath placement as above. Haroon Hendrickson MD on January 27, 2017 at 13:08 Board Certified Radiologist. This report was verified electronically.
--- NOTE | 2017-01-27 15:03 | HHI.NPPN ---
Subjective History of Present Illness The patient is a 81 yo male who was transferred from [facility] to this facility today for vascular intervention of LLE. According to records from [facility] , he had a stent placed in [facility] in November with angioplasty of LLE that was unsuccessful. He was treated medically as outpatient, but he returned to the ED at [facility] with complaints of worsening pain. He has subsequently been transferred to this facility for vascular surgery to attempt to salvage LLE. We have been consulted for dialysis management. [facility]zes TTS via R AVF in [place] with primary organ recovery coordinator, Dr. Sterling. Interval History Patient was seen postdialysis today. No verbal complaints. Indicated that he was ready to go home. Objective Data Data 01/26/17 01/27/17 19:00 07:00 Intake Total 750 ml 315 ml Output Total 100 ml 0 ml Balance 650 ml 315 ml Intake Oral 50 ml 240 ml IV Total 0 ml 75 ml Other 700 ml Output Urine Total 0 ml Estimated Blood Loss 100 ml # Voids 0 # Bowel Movements 0 Vital Signs Date Time Temp Pulse Resp B/P Pulse Ox O2 Delivery O2 Flow Rate FiO2 01/27/17 14:57 98.6 84 18 132/74 98 01/27/17 14:32 91 01/27/17 14:32 97.6 89 126/82 96 01/27/17 13:35 95 01/27/17 13:28 97.9 87 18 128/76 96 01/27/17 12:54 97.6 82 20 132/84 96 01/27/17 10:16 95 21 01/27/17 07:22 16 01/27/17 07:22 16 01/27/17 07:00 96 01/27/17 06:00 96 01/27/17 05:00 98 01/27/17 04:00 100.4 94 24 123/55 94 01/27/17 04:00 96 01/27/17 03:00 92 01/27/17 02:00 90 01/27/17 01:00 90 01/27/17 00:00 99 01/27/17 00:00 97.4 99 20 130/52 98 01/26/17 23:00 72 01/26/17 22:00 70 01/26/17 21:00 70 01/26/17 20:00 75 01/26/17 20:00 78 20 167/65 96 01/26/17 19:00 68 01/26/17 17:44 97.3 66 12 159/71 99 Nasal Cannula 2 01/26/17 17:30 66 20 162/70 99 Nasal Cannula 2 01/26/17 17:20 98 Nasal Cannula 2.00 01/26/17 17:15 74 23 158/65 100 Nasal Cannula 2 01/26/17 17:00 80 17 156/67 99 Nasal Cannula 2 01/26/17 16:56 97.5 88 15 144/64 100 Nasal Cannula 3 -: 01/27/17 0545 01/27/17 0545 Tubes & Lines: Vas-Cath Physical Exam General Appearance: No Acute Distress, Comfortable Eyes Eye Exam: Sclera White Pulmonary Resp Exam: Clear Bilaterally, Breath Sounds Equal, No Distress Cardiology CV Exam: Regular, Normal Sinus Rhythm, Good Perfusion Gastrointestinal/Abdomen GI Exam: Soft, Non-Tender Assessment/Plan Discussed Condition With: Patient Problem List: (1) ESRD (end stage renal disease) on dialysis Plan: Hemodialysis PermCath is in place. Discharge planning okay from renal point of view. If patient is not discharged today we'll plan for hemodialysis tomorrow as per his outpatient schedule. If patient is discharged today he was advised to keep his dialysis appointment at the outpatient clinic tomorrow. Patient will be seen when necessary at this point in time presuming discharge over the weekend. He will follow up with his regular outpatient organ recovery coordinator. We'll defer to that organ recovery coordinator regarding management of his dialysis access. Medications should be adjusted for the patient's ESRD. Avoid gadolinium. (2) Ischemia of lower extremity Plan: Management as per vascular surgery (3) Diabetes mellitus Plan: Management as per primary (4) Anemia Plan: Hemoglobin has fallen off the surgery. Continue Epogen for anemia renal disease. Generally I transfuse with a hemoglobin less than 7 but will defer to primary care. Niru Long MD Jan 27, 2017 15:03
[2017-01-27] MEDS ORDERED: HEPARIN SODIUM - IV 10,000 UNITS/10 ML VIAL IV PRN ×2 (16:00)
[2017-01-27 16:03] LABS: APTT (PATIENT) 47.8 SEC (24.3-30.1)
[2017-01-27] MEDS ORDERED: EPOETIN ALFA 10,000 UNITS/ML VIAL SQ ONE (17:00)
[2017-01-27] MEDS ORDERED: EPOETIN ALFA 2,000 UNITS/ML VIAL IV PRN (17:37)
[2017-01-27] MEDS: ATORVASTATIN 40 MG TAB PO SCH (20:34)
[2017-01-28] VITALS (27 sets, daily range): BP systolic 118–141; BP diastolic 47–56; PULSE 78–94; RESP 18–24; TEMP 98.5–99.7; O2SAT 92–99
[2017-01-28 00:35] LABS: APTT (PATIENT) 41.5 SEC (24.3-30.1)
[2017-01-28] MEDS: MEDIUM DOSE INSULIN NOVOLIN REGULAR SUPPLEMENTAL SCALE SQ SCH ×4 (06:22→21:00)
[2017-01-28] MEDS: HEPARIN 25,000 UNITS-D5W 250 ML - PREMIX IV SCH (06:23)
[2017-01-28 08:04] LABS: APTT (PATIENT) 53.1 SEC (24.3-30.1)
[2017-01-28] MEDS: DOCUSATE SODIUM 100 MG CAP PO SCH ×2 (08:26→21:11)
[2017-01-28] MEDS: ASPIRIN 325 MG TAB PO SCH (08:26)
[2017-01-28] MEDS: CALCIUM ACETATE 667 MG CAP PO SCH ×3 (08:26→18:00)
[2017-01-28] MEDS ORDERED: EPOETIN ALFA 2,000 UNITS/ML VIAL IV PRN (10:45)
--- NOTE | 2017-01-28 11:03 | PD.VS.PN ---
Subjective POD #: 2 Procedure(s): L fem-AT with cryo, angiogram Subjective/Hospital Course no complaints foot ok pain controlled got tunneled catheter yesterday Objective Vitals/I&O Date Time Temp Pulse Resp B/P Pulse Ox O2 Delivery O2 Flow Rate FiO2 01/28/17 09:47 98.7 91 18 141/56 96 01/28/17 07:01 83 01/28/17 06:00 86 01/28/17 05:00 82 01/28/17 04:00 84 01/28/17 03:00 98.7 90 22 118/47 92 01/28/17 03:00 89 01/28/17 02:00 90 01/28/17 01:00 92 01/28/17 00:00 94 01/27/17 23:00 94 01/27/17 23:00 100.9 97 22 122/55 93 01/27/17 22:00 96 01/27/17 21:00 100 01/27/17 20:28 97 01/27/17 20:00 88 01/27/17 19:00 91 01/27/17 19:00 100.1 92 18 121/60 96 01/27/17 15:00 98.3 97 20 135/72 98 01/27/17 14:57 98.6 84 18 132/74 98 01/27/17 14:32 91 01/27/17 14:32 97.6 89 126/82 96 01/27/17 13:35 95 01/27/17 13:28 97.9 87 18 128/76 96 01/27/17 12:54 97.6 82 20 132/84 96 01/28/17 01/28/17 01/28/17 06:59 14:59 22:59 Intake Total 840 ml Output Total 50 ml Balance 790 ml Exam: L groin covered with Provena L thigh incision ok palpable graft pulse L distal AT wound covered Foot warm, motor intact Laboratory Laboratory Tests Test 01/27/17 01/27/17 01/28/17 15:18 23:58 07:35 Activated Partial 47.8 41.5 53.1 Thromboplast Time Assessment and Plan Assessment: (1) Ischemia of lower extremity Status: Acute Plan Patent bypass foot warm 1. Cont hep gtt 2. PT/OOB 3. HD per nephrology Discharge Planning likely Monday Nabeel Vega MD Jan 28, 2017 11:03
--- NOTE | 2017-01-28 11:10 | HHI.NPPN ---
Subjective History of Present Illness The patient is a 81 yo male who was transferred from [facility] to this facility today for vascular intervention of LLE. According to records from [facility] , he had a stent placed in [facility] in November with angioplasty of LLE that was unsuccessful. He was treated medically as outpatient, but he returned to the ED at [facility] with complaints of worsening pain. He has subsequently been transferred to this facility for vascular surgery to attempt to salvage LLE. We have been consulted for dialysis management. Dialyzes TTS via R AVF in [place] with primary [place] line attendant, Dr. Sterling. Interval History Pt with some cough today. Denies SOB or CP. Not been out of bed since surgery. Son present during exam (Nasima Torres) Review of Systems Respiratory Lungs: Cough, Sputum (Nasima Torres) Objective Data Data 01/27/17 01/28/17 19:00 07:00 Intake Total 250 ml 840 ml Output Total 1500 ml 50 ml Balance -1250 ml 790 ml Intake Oral 250 ml 720 ml IV Total 120 ml Output Urine Total 0 ml 50 ml Hemodialysis 1500 ml # Bowel Movements 0 Vital Signs Date Time Temp Pulse Resp B/P Pulse Ox O2 Delivery O2 Flow Rate FiO2 01/28/17 09:47 98.7 91 18 141/56 96 01/28/17 07:01 83 01/28/17 06:00 86 01/28/17 05:00 82 01/28/17 04:00 84 01/28/17 03:00 98.7 90 22 118/47 92 01/28/17 03:00 89 01/28/17 02:00 90 01/28/17 01:00 92 01/28/17 00:00 94 01/27/17 23:00 94 01/27/17 23:00 100.9 97 22 122/55 93 01/27/17 22:00 96 01/27/17 21:00 100 01/27/17 20:28 97 01/27/17 20:00 88 01/27/17 19:00 91 01/27/17 19:00 100.1 92 18 121/60 96 01/27/17 15:00 98.3 97 20 135/72 98 01/27/17 14:57 98.6 84 18 132/74 98 01/27/17 14:32 91 01/27/17 14:32 97.6 89 126/82 96 01/27/17 13:35 95 01/27/17 13:28 97.9 87 18 128/76 96 01/27/17 12:54 97.6 82 20 132/84 96 (Nasima Torres) -: 01/27/17 0545 01/27/17 0545 Imaging Last Impressions Central Venous Line 01/27/17 0000 Signed Impressions: Service Date/Time: Friday, January 27, 2017 00:00 - CONCLUSION: Uncomplicated catheter removal. Haroon Hendrickson MD Catheter Placement X-Ray 01/27/17 0000 Signed Impressions: Service Date/Time: Tuesday, January 24, 2017 16:55 - CONCLUSION: Uncomplicated PermaCath placement as above. Haroon Hendrickson MD Lower Extremity Ultrasound 01/23/17 0000 Signed Impressions: Service Date/Time: Monday, January 23, 2017 19:53 - CONCLUSION: The study is negative for deep venous thrombosis bilateral lower extremity. Vladislav Maria MD Tubes & Lines: Perma-Cath Medication Review Current Medications Medications (Trade) Dose Ordered Sig/Marta Route Start Time Stop Time Status Last Admin (Roxicodone) 5 mg Q4H PRN PO 01/23/17 17:00 01/27/17 06:11 (Dilaudid) 2 mg Q4H PRN PO 01/23/17 17:00 01/24/17 21:52 (Morphine Inj) 2 mg Q1H PRN IV 01/23/17 17:00 01/27/17 06:12 (Lipitor) 40 mg HS PO 01/23/17 21:00 01/25/17 20:28 (Aspirin) 325 mg DAILY PO 01/24/17 09:00 01/28/17 08:26 (Colace) 100 mg BID PO 01/23/17 21:00 01/30/17 20:59 01/27/17 20:35 (D50w (Vial) Inj) 50 ml UNSCH PRN IV PUSH 01/23/17 18:15 Glucagon 1 mg 1 mg UNSCH PRN OTHER 01/23/17 18:15 (NS 1000 ml Inj) 1,000 ml @ 0 mls/hr Q0M PRN IV 01/24/17 11:42 8/4/17 09:11 Heparin Sodium (Porcine) 8000 units 8,000 units UNSCH PRN IVF 01/24/17 11:45 Sodium Chloride 1,000 ml @ 200 mls/hr Q5H PRN IV 01/24/17 11:42 (NS 1000 ml Inj) 1,000 ml @ 0 mls/hr Q0M PRN IV 01/24/17 11:42 (Mannitol Inj) 12.5 gm UNSCH PRN IV 01/24/17 11:45 (Albumin 25% Inj) 25 gm UNSCH PRN IV 01/24/17 11:45 (NS Flush) 5 ml UNSCH PRN IV FLUSH 01/24/17 11:45 (Heparin Inj) UNSCH PRN .XX 01/24/17 11:45 01/27/17 09:11 (Gentamicin (Dialysis) Inj) 20 mg UNSCH PRN IV 01/24/17 11:45 01/27/17 09:11 (Zofran Inj) 4 mg UNSCH PRN IV 01/24/17 11:45 (Tylenol) 650 mg UNSCH PRN PO 01/24/17 11:45 01/28/17 00:14 (Benadryl) 25 mg UNSCH PRN PO 01/24/17 11:45 (Nitrostat Sl) 0.4 mg UNSCH PRN SL 01/24/17 11:45 (Catapres) 0.1 mg UNSCH PRN PO 01/24/17 11:45 (Gelfoam 12 Mm/7 Mm Top) 1 foam UNSCH PRN TOP 01/24/17 11:45 Calcium Acetate 2001 mg 2,001 mg TID PO 01/24/17 13:00 01/28/17 08:26 Lactated Ringer's 1,000 ml @ 30 mls/hr Q24H PRN IV 01/26/17 11:00 01/29/17 10:59 (NS 500 ml Inj) 500 ml @ 30 mls/hr [id number] PRN IV 01/26/17 11:00 01/29/17 10:59 (NS Flush) UNSCH PRN IVF 01/27/17 12:45 Heparin Sodium (Porcine) UNSCH PRN IV FLUSH 01/27/17 12:45 (Heparin-D5W Inj) 250 ml @ 0 mls/hr TITRATE IV 01/27/17 16:00 01/28/17 06:23 (Heparin Inj) 5,000 units UNSCH PRN IV 01/27/17 16:00 (Heparin Inj) 2,500 units UNSCH PRN IV 01/27/17 16:00 (Epogen Inj) 5,000 units UNSCH PRN IV 01/28/17 10:45 UNV (Nasima Torres) Physical Exam General Appearance: No Acute Distress, Comfortable (Nasima Torres) Eyes Eye Exam: Sclera White (Nasima Torres) Pulmonary Resp Exam: Breath Sounds Equal, No Distress, Decreased Bases (Nasima Torres) Cardiology CV Exam: Regular, Normal Sinus Rhythm, Good Perfusion (Nasima Torres) Gastrointestinal/Abdomen GI Exam: Soft, Non-Tender (Nasima Torres) Extremeties Extremities Exam: No Edema (Nasima Torres) Neurologic Neuro Exam: Alert, Awake (Nasima Torres) Psychiatric Psych Exam: Appropriate Responses (Nasima Torres) Assessment/Plan Discussed Condition With: Patient, Son Problem List: (1) ESRD (end stage renal disease) on dialysis Plan: HD today as per regular TTS schedule. Epo with tx UF 2L Will see the patient PRN thru the weekend. Discharge OK from renal standpoint. Medications should be adjusted for the patient's ESRD. Avoid gadolinium. (2) Ischemia of lower extremity Plan: Management as per vascular surgery (3) Diabetes mellitus Plan: Management as per primary (4) Anemia Plan: CBC pending today Epo with tx at 5000U Will defer to primary if transfusion necessary. (Nasima Torres) Plan The exam, history, and the medical decision-making described in the above note were completed with the assistance of the PATai. I reviewed and agree with the findings presented. I attest that I had a [id number] encounter with the patient on the same day, and personally performed and documented my assessment and findings in the medical record. (Niru Long MD) Nasima Torres Jan 28, 2017 11:10 Niru Long MD Jan 28, 2017 14:25
[2017-01-28] MEDS: HEPARIN SODIUM - IV 10,000 UNITS/10 ML VIAL PRN (14:31)
[2017-01-28] MEDS: GENTAMICIN SULFATE (DIALYSIS USE ONLY) 20 MG/2 ML VIAL IV PRN (14:32)
[2017-01-28] MEDS: ATORVASTATIN 40 MG TAB PO SCH (21:00)
[2017-01-29] VITALS (28 sets, daily range): BP systolic 127–145; BP diastolic 53–66; PULSE 56–94; RESP 16–18; TEMP 98.3–99; O2SAT 93–98
[2017-01-29] MEDS: HEPARIN 25,000 UNITS-D5W 250 ML - PREMIX IV SCH (04:06)
[2017-01-29] MEDS: MEDIUM DOSE INSULIN NOVOLIN REGULAR SUPPLEMENTAL SCALE SQ SCH ×4 (05:15→21:00)
[2017-01-29] MEDS: ASPIRIN 325 MG TAB PO SCH (08:47)
[2017-01-29] MEDS: CALCIUM ACETATE 667 MG CAP PO SCH ×3 (08:47→18:41)
[2017-01-29] MEDS: DOCUSATE SODIUM 100 MG CAP PO SCH ×2 (08:47→22:03)
[2017-01-29 09:11] LABS: HEMATOCRIT 21.8 % (39.0-51.0); MEAN CORPUSCULAR HEMOGLOBIN 35.2 PG (27.0-34.0); MEAN CORPUSCULAR HGB CONC 34.5 % (32.0-36.0); PLATELET COUNT 138 TH/MM3 (150-450); RED BLOOD COUNT 2.14 MIL/MM3 (4.50-5.90); RED CELL DISTRIBUTION WIDTH 15.7 % (11.6-17.2); REVIEW FLAG FINAL; WHITE BLOOD COUNT 6.5 TH/MM3 (4.0-11.0)
[2017-01-29 09:23] LABS: APTT (PATIENT) 62.3 SEC (24.3-30.1)
[2017-01-29 09:42] LABS: BICARBONATE 31.8 MEQ/L (21.0-32.0); POTASSIUM 3.9 MEQ/L (3.5-5.1)
--- NOTE | 2017-01-29 11:31 | PD.VS.PN ---
Subjective POD #: 3 Procedure(s): L fem-AT with cryo, angiogram Subjective/Hospital Course doing well had HD yesterday via catheter per usual schedule (TTS) no c/o foot pain not ambulated much yet Objective Vitals/I&O Date Time Temp Pulse Resp B/P Pulse Ox O2 Delivery O2 Flow Rate FiO2 01/29/17 08:30 98.6 90 18 127/58 97 01/29/17 07:01 87 01/29/17 06:00 84 01/29/17 05:00 84 01/29/17 04:00 80 01/29/17 03:00 98.8 85 16 134/55 96 01/29/17 03:00 87 01/29/17 02:00 86 01/29/17 01:00 84 01/29/17 00:00 86 01/28/17 23:00 90 01/28/17 23:00 99.7 84 24 124/51 95 01/28/17 22:00 82 01/28/17 21:00 88 01/28/17 20:00 82 01/28/17 19:00 99.7 84 22 136/51 96 01/28/17 19:00 85 01/28/17 18:01 86 01/28/17 17:01 82 01/28/17 16:15 98.5 82 18 124/47 99 01/28/17 16:00 78 01/28/17 15:00 78 01/28/17 14:00 78 01/28/17 13:00 84 01/28/17 12:01 92 01/29/17 01/29/17 01/29/17 07:00 15:00 23:00 Intake Total 370 ml Output Total 200 ml Balance 170 ml Exam: L groin VAC removed - incision c/d/i L lower leg dressing removed - incision c/d/i Pulses: palpable graft pulse Laboratory Laboratory Tests Test 01/29/17 08:08 White Blood Count 6.5 Red Blood Count 2.14 Hemoglobin 7.5 Hematocrit 21.8 Mean Corpuscular Volume 102.0 Mean Corpuscular Hemoglobin 35.2 Mean Corpuscular Hemoglobin 34.5 Concent Red Cell Distribution Width 15.7 Platelet Count 138 Mean Platelet Volume 10.0 Activated Partial 62.3 Thromboplast Time Sodium Level 137 Potassium Level 3.9 Chloride Level 97 Carbon Dioxide Level 31.8 Anion Gap 8 Blood Urea Nitrogen 23 Creatinine 5.79 Estimat Glomerular Filtration 9 Rate Random Glucose 215 Calcium Level 8.0 Phosphorus Level 3.3 Albumin 2.5 Assessment and Plan Assessment: (1) Ischemia of lower extremity Status: Acute Plan Patent bypass foot warm 1. Cont hep gtt until ready for d/c then ASA/plavix 2. PT/OOB 3. HD per nephrology Discharge Planning likely Monday Nabeel Vega MD Jan 29, 2017 11:31
--- NOTE | 2017-01-29 17:42 | RADRPT ---
EXAM DATE/TIME: 01/29/2017 16:57 [place] COMPARISON: No previous studies available for comparison. INDICATIONS : Congestion and Cough MEDICAL HISTORY : Hypertension. GERD. Renal failure. Dialysis. Diabetic. PAD. SURGICAL HISTORY : Right hip pinning. ENCOUNTER: Initial ACUITY: 3 days PAIN SCORE: 0/10 LOCATION: Bilateral chest FINDINGS: PA and lateral views of the chest demonstrate minimal basal atelectasis with trace pleural effusions. Right-sided catheter in superior vena cava. Heart size within normal limits. Vascular stent proximal left arm. CONCLUSION: 1. Minimal basal atelectasis and small pleural effusions. Right-sided catheter tip in superior vena c lindsay. No pneumothorax. Amador Benitez MD on January 29, 2017 at 17:38 Board Certified Radiologist. This report was verified electronically.
[2017-01-29] MEDS: ATORVASTATIN 40 MG TAB PO SCH (21:00)
[2017-01-30] VITALS (21 sets, daily range): BP systolic 100–152; BP diastolic 46–64; PULSE 73–99; RESP 16–20; TEMP 98.1–99.2; O2SAT 91–98
[2017-01-30] MEDS: HEPARIN 25,000 UNITS-D5W 250 ML - PREMIX IV SCH ×2 (05:06→23:32)
[2017-01-30] MEDS: MEDIUM DOSE INSULIN NOVOLIN REGULAR SUPPLEMENTAL SCALE SQ SCH ×4 (06:27→20:19)
[2017-01-30] MEDS: CALCIUM ACETATE 667 MG CAP PO SCH ×3 (08:52→17:39)
[2017-01-30] MEDS: DOCUSATE SODIUM 100 MG CAP PO SCH (08:52)
[2017-01-30] MEDS: ASPIRIN 325 MG TAB PO SCH (08:53)
--- NOTE | 2017-01-30 09:47 | HHI.FF ---
Face to Face Verification Diagnosis: (1) Ischemia of lower extremity (2) PAD (peripheral artery disease) Physical Therapy Order: Evaluate and Treat, Improve ambulation, Strength and gait training Instructions: PT three times a week for 3 weeks Home Health Nursing Order: Medical education Signs/symptoms of disease process I have seen patient Rod Sam on 01/30/17. My clinical findings support the need for the requested home health care services because: Pt is medically cleared and will need out patient services for optimal post operative healing. Ltd mobility - disease progression High risk of falls I certify that my clinical findings support that this patient is homebound because: Pt is medically cleared and will need out patient services for optimal post operative healing Post-op weakness Unsteady gait/balance Darlene Means Jan 30, 2017 09:47
--- NOTE | 2017-01-30 09:53 | PD.VS.PN ---
Subjective POD #: 4 Procedure(s): L fem-AT with cryo, angiogram Subjective/Hospital Course Pt sitting in chair alert in NAD Pt w/o complaints Objective Vitals/I&O Date Time Temp Pulse Resp B/P Pulse Ox O2 Delivery O2 Flow Rate FiO2 01/30/17 09:00 82 01/30/17 08:00 94 01/30/17 07:00 80 01/30/17 07:00 99.2 99 20 127/51 98 01/30/17 06:00 78 01/30/17 05:00 80 01/30/17 04:00 86 01/30/17 03:00 76 01/30/17 03:00 98.8 87 16 139/57 97 01/30/17 02:00 82 01/30/17 01:00 82 01/30/17 00:00 82 01/29/17 23:00 81 01/29/17 23:00 99.0 80 18 145/66 95 01/29/17 22:06 21 01/29/17 22:00 76 01/29/17 21:00 78 01/29/17 20:00 80 01/29/17 19:00 98.8 82 18 141/58 98 01/29/17 19:00 77 01/29/17 18:01 56 01/29/17 17:01 77 01/29/17 16:00 80 01/29/17 15:15 98.3 79 18 141/64 96 01/29/17 15:01 82 01/29/17 14:00 80 01/29/17 13:00 76 01/29/17 12:01 74 01/29/17 11:30 98.6 80 18 128/53 96 01/29/17 11:00 82 01/29/17 10:00 94 01/30/17 01/30/17 01/30/17 07:00 15:00 23:00 Intake Total 370 ml Output Total 125 ml Balance 245 ml Exam: GENERAL: A&OX3/NAD/GCS15 SKIN: Warm and dry MUSCULOSKELETAL: No cyanosis, or edema. LE warm with motor intact Laboratory Laboratory Tests Test 01/30/17 08:20 Activated Partial 44.0 Thromboplast Time Assessment and Plan Assessment: (1) Ischemia of lower extremity Status: Acute Plan Patent bypass/ Foot warm PLAN Continue PT/OOB D/C Planning Cont hep gtt until ready for d/c then ASA/Plavix HD per nephrology Darlene ZIMMER [facility] [phone] Discharge Planning likely 1-2 days Darlene Means Jan 30, 2017 09:53
--- NOTE | 2017-01-30 11:43 | HHI.NPPN ---
Subjective History of Present Illness The patient is a 81 yo male who was transferred from [facility] to this facility today for vascular intervention of LLE. According to records from [facility] , he had a stent placed in [facility] in November with angioplasty of LLE that was unsuccessful. He was treated medically as outpatient, but he returned to the ED at [facility] with complaints of worsening pain. He has subsequently been transferred to this facility for vascular surgery to attempt to salvage LLE. We have been consulted for dialysis management. Dialyzes TTS via R AVF in [place] with primary web applications developer, Dr. Sterling. Interval History Resting comfortably in bed. No verbal complaints. Review of Systems Respiratory Lungs: Cough, Sputum Objective Data Data 01/29/17 01/30/17 19:00 07:00 Intake Total 761 ml 370 ml Output Total 0 ml 125 ml Balance 761 ml 245 ml Intake Oral 480 ml 240 ml IV Total 281 ml 130 ml Output Urine Total 0 ml 125 ml # Voids 0 # Bowel Movements 0 Vital Signs Date Time Temp Pulse Resp B/P Pulse Ox O2 Delivery O2 Flow Rate FiO2 01/30/17 11:00 98.4 82 18 100/46 98 01/30/17 11:00 73 01/30/17 10:31 91 21 01/30/17 10:00 77 01/30/17 09:00 82 01/30/17 08:00 94 01/30/17 07:00 80 01/30/17 07:00 99.2 99 20 127/51 98 01/30/17 06:00 78 01/30/17 05:00 80 01/30/17 04:00 86 01/30/17 03:00 76 01/30/17 03:00 98.8 87 16 139/57 97 01/30/17 02:00 82 01/30/17 01:00 82 01/30/17 00:00 82 01/29/17 23:00 81 01/29/17 23:00 99.0 80 18 145/66 95 01/29/17 22:06 21 01/29/17 22:00 76 01/29/17 21:00 78 01/29/17 20:00 80 01/29/17 19:00 98.8 82 18 141/58 98 01/29/17 19:00 77 01/29/17 18:01 56 01/29/17 17:01 77 01/29/17 16:00 80 01/29/17 15:15 98.3 79 18 141/64 96 01/29/17 15:01 82 01/29/17 14:00 80 01/29/17 13:00 76 01/29/17 12:01 74 -: 01/29/17 0808 01/29/17 0808 Tubes & Lines: Perma-Cath Physical Exam General Appearance: No Acute Distress, Comfortable Eyes Eye Exam: Sclera White Pulmonary Resp Exam: Breath Sounds Equal, No Distress, Decreased Bases Cardiology CV Exam: Regular, Normal Sinus Rhythm, Good Perfusion Gastrointestinal/Abdomen GI Exam: Soft, Non-Tender Extremeties Extremities Exam: No Edema Neurologic Neuro Exam: Alert, Awake Psychiatric Psych Exam: Appropriate Responses Assessment/Plan Discussed Condition With: Patient, Son Problem List: (1) ESRD (end stage renal disease) on dialysis Plan: Hemodialysis tomorrow. Epo with tx UF 2L Discharge planning per vascular surgery. Discharge OK from renal standpoint. Medications should be adjusted for the patient's ESRD. Avoid gadolinium. (2) Ischemia of lower extremity Plan: Management as per vascular surgery (3) Diabetes mellitus Plan: Management as per primary (4) Anemia Plan: Continue Epogen with dialysis. Repeat CBC a.m. Will defer to primary if transfusion necessary. Plan The exam, history, and the medical decision-making described in the above note were completed with the assistance of the PATai. I reviewed and agree with the findings presented. I attest that I had a [id number] encounter with the patient on the same day, and personally performed and documented my assessment and findings in the medical record. Niru Long MD Jan 30, 2017 11:43
[2017-01-30] MEDS: ATORVASTATIN 40 MG TAB PO SCH (23:27)
[2017-01-31 04:00] VITALS: BP 140/56; PULSE 80; RESP 18; TEMP 98; O2SAT 95
[2017-01-31] MEDS: MEDIUM DOSE INSULIN NOVOLIN REGULAR SUPPLEMENTAL SCALE SQ SCH ×3 (06:28→14:20)
--- NOTE | 2017-01-31 07:04 | PD.VS.PN ---
Subjective POD #: 5 Procedure(s): L fem-AT with cryo, angiogram Subjective/Hospital Course Pt w/o complaints says no pain Objective Vitals/I&O Date Time Temp Pulse Resp B/P Pulse Ox O2 Delivery O2 Flow Rate FiO2 01/31/17 04:00 98.0 80 18 140/56 95 01/30/17 23:37 98.1 85 18 146/60 95 01/30/17 20:00 98.4 82 18 152/64 95 01/30/17 17:00 75 01/30/17 16:00 75 01/30/17 15:00 98.3 86 20 144/53 97 01/30/17 15:00 83 01/30/17 14:00 87 01/30/17 13:00 88 01/30/17 12:00 76 01/30/17 11:00 98.4 82 18 100/46 98 01/30/17 11:00 73 01/30/17 10:31 91 21 01/30/17 10:00 77 01/30/17 09:00 82 01/30/17 08:00 94 01/31/17 01/31/17 01/31/17 07:00 15:00 23:00 Intake Total 240 ml Output Total 250 ml Balance -10 ml Exam: resting comfortably foot warm Pulses: palpable graft pulse Incisions: groin incision c/d/i thigh incision c/d/i lower leg incision c/d/i Laboratory Laboratory Tests Test 01/30/17 08:20 Activated Partial 44.0 Thromboplast Time Assessment and Plan Assessment: (1) Ischemia of lower extremity Status: Acute Plan Patent bypass/ Foot warm Continue PT/OOB D/C Planning Cont hep gtt until ready for d/c then ASA/Plavix HD per nephrology Discharge Planning today or tomorrow Nabeel Vega MD Jan 31, 2017 07:04
[2017-01-31 07:52] LABS: HEMATOCRIT 22.6 % (39.0-51.0); MEAN CORPUSCULAR HEMOGLOBIN 34.4 PG (27.0-34.0); MEAN CORPUSCULAR HGB CONC 34.1 % (32.0-36.0); PLATELET COUNT 147 TH/MM3 (150-450); RED BLOOD COUNT 2.24 MIL/MM3 (4.50-5.90); RED CELL DISTRIBUTION WIDTH 15.7 % (11.6-17.2); REVIEW FLAG FINAL; WHITE BLOOD COUNT 6.8 TH/MM3 (4.0-11.0)
[2017-01-31 08:00] VITALS: BP 134/57; PULSE 84; RESP 18; TEMP 97.5; O2SAT 100
[2017-01-31 08:00] LABS: APTT (PATIENT) 64.4 SEC (24.3-30.1)
[2017-01-31] MEDS: CALCIUM ACETATE 667 MG CAP PO SCH ×2 (09:00→14:18)
[2017-01-31] MEDS: ASPIRIN 325 MG TAB PO SCH (09:00)
[2017-01-31] MEDS ORDERED: PLAV75TA29 PO (09:54)
[2017-01-31] MEDS ORDERED: ASPI81CH CHEW (09:54)
[2017-01-31] MEDS ORDERED: OXYC-392 PO (09:54)
--- NOTE | 2017-01-31 10:04 | PD.VS.DC ---
Discharge Summary Admission Date: Jan 23, 2017 at 15:38 Discharge Date: Jan 31, 2017 Admission Diagnosis: (1) PAD (peripheral artery disease) (2) Ischemia of lower extremity Discharge Diagnosis: (1) Ischemia of lower extremity Status: Acute Brief History from admission Mr. Sam is a 81/ Male who arrives as a Transfer from [facility]. Pt and daughter c/o LLE pain with discoloration times 1 month that worsened over the past few days. Daughter reported she brought her father to the emergency department ([facility]) because he was unable to ambulate due to pain. Pt with a PMH of DM,PVD, Kidney Failure (HD) and HTN. Pt reported he had a recent stent placed in is LLE 1M ago. Procedure(s): L fem-AT with cryo, angiogram Significant Findings GENERAL: A&OX3,NAD,GCS15 SKIN: Warm and dry/ Left groin incision intact w/o R/D/S/O LLE incision i/c/d/ BLE warm MUSCULOSKELETAL: No cyanosis, or edema. BLE warm with motor intact Laboratory Tests Test 01/29/17 01/30/17 01/31/17 01/31/17 08:08 08:20 06:28 06:33 Red Blood Count 2.14 MIL/MM3 2.24 MIL/MM3 (4.50-5.90) (4.50-5.90) Hemoglobin 7.5 GM/DL 7.7 GM/DL (13.0-17.0) (13.0-17.0) Hematocrit 21.8 % 22.6 % (39.0-51.0) (39.0-51.0) Mean Corpuscular Volume 102.0 FL 101.0 FL (80.0-100.0) (80.0-100.0) Mean Corpuscular Hemoglobin 35.2 PG 34.4 PG (27.0-34.0) (27.0-34.0) Platelet Count 138 TH/MM3 147 TH/MM3 (150-450) (150-450) Activated Partial 62.3 SEC 44.0 SEC 64.4 SEC Thromboplast Time (24.3-30.1) (24.3-30.1) (24.3-30.1) Chloride Level 97 MEQ/L (98-107) Blood Urea Nitrogen 23 MG/DL (7-18) Creatinine 5.79 MG/DL (0.60-1.30) Estimat Glomerular Filtration 9 ML/MIN (>89) Rate Random Glucose 215 MG/DL (74-106) Calcium Level 8.0 MG/DL (8.5-10.1) Albumin 2.5 GM/DL (3.4-5.0) Hospital Course: Mr. Sam is a 81/ Male who arrives as a Transfer from [facility]. Pt and daughter c/o LLE pain with discoloration times 1 month that worsened over the past few days. Daughter reported she brought her father to the emergency department ([facility]) because he was unable to ambulate due to pain. Pt is S/P L fem-AT cryo/angiogram Pt has done well post operatively w/o complications Pt will need to continue PT, offered SNF Rehab- Family refused Pt medically cleared/Stable will go home with OP PT Will F/U in our OPC in 2W Allergies Coded Allergies Type Severity Reaction Last Updated Verified No Known Allergies 07/11/16 No Recent Impressions Chest X-Ray 01/29/17 0000 Signed Impressions: Service Date/Time: Sunday, January 29, 2017 16:57 - CONCLUSION: 1. Minimal basal atelectasis and small pleural effusions. Right-sided catheter tip in superior vena cava. No pneumothorax. Amador Benitez MD 06:00 18:00 06:00 18:00 06:00 18:00 Intake Total 370 ml 1131 ml 758 ml 240 ml Output Total 200 ml 125 ml 400 ml Balance 170 ml 1006 ml 758 ml -160 ml Intake Oral 240 ml 720 ml 480 ml 240 ml IV Total 130 ml 411 ml 278 ml Output Urine Total 200 ml 125 ml 400 ml # Voids 0 1 1 # Bowel Movements 0 Laboratory Tests Test 01/29/17 01/30/17 01/31/17 01/31/17 08:08 08:20 06:28 06:33 White Blood Count 6.5 TH/MM3 6.8 TH/MM3 Red Blood Count 2.14 MIL/MM3 2.24 MIL/MM3 Hemoglobin 7.5 GM/DL 7.7 GM/DL Hematocrit 21.8 % 22.6 % Mean Corpuscular Volume 102.0 FL 101.0 FL Mean Corpuscular Hemoglobin 35.2 PG 34.4 PG Mean Corpuscular Hemoglobin 34.5 % 34.1 % Concent Red Cell Distribution Width 15.7 % 15.7 % Platelet Count 138 TH/MM3 147 TH/MM3 Mean Platelet Volume 10.0 FL 10.3 FL Activated Partial 62.3 SEC 44.0 SEC 64.4 SEC Thromboplast Time Sodium Level 137 MEQ/L Potassium Level 3.9 MEQ/L Chloride Level 97 MEQ/L Carbon Dioxide Level 31.8 MEQ/L Anion Gap 8 MEQ/L Blood Urea Nitrogen 23 MG/DL Creatinine 5.79 MG/DL Estimat Glomerular Filtration 9 ML/MIN Rate Random Glucose 215 MG/DL Calcium Level 8.0 MG/DL Phosphorus Level 3.3 MG/DL Albumin 2.5 GM/DL Procedure Category Date Status Time Epoetin Levy Inj MED 01/28/17 In Process (Epogen Inj) 10:45 Consult Pt Eval & Tx PT 01/28/17 Logged OOB 11:03 Activity Oob With [facility] 01/28/17 In Process Assistance 11:03 Renal Functional Panel LAB 01/29/17 Complete 06:00 Family Notification [facility] 01/28/17 Complete 18:03 Chest, Pa & Lat RADDIAG 01/29/17 Resulted Frequency Of Dialysis [facility] 01/30/17 In Process 11:39 Cbc No Diff, Includes LAB 01/31/17 Complete Plts 06:00 Patient Transfer ADMITTING 01/30/17 Transmitted 16:13 Attending Discharge DISCHARGE 01/31/17 Transmitted Order Vital Signs Date Time Temp Pulse Resp B/P Pulse Ox O2 Delivery O2 Flow Rate FiO2 01/31/17 08:00 97.5 84 18 134/57 100 01/31/17 04:00 98.0 80 18 140/56 95 01/30/17 23:37 98.1 85 18 146/60 95 01/30/17 20:00 98.4 82 18 152/64 95 01/30/17 17:00 75 01/30/17 16:00 75 01/30/17 15:00 98.3 86 20 144/53 97 01/30/17 15:00 83 01/30/17 14:00 87 01/30/17 13:00 88 01/30/17 12:00 76 01/30/17 11:00 98.4 82 18 100/46 98 01/30/17 11:00 73 01/30/17 10:31 91 21 01/30/17 10:00 77 01/30/17 09:00 82 01/30/17 08:00 94 01/30/17 07:00 80 01/30/17 07:00 99.2 99 20 127/51 98 01/30/17 06:00 78 01/30/17 05:00 80 01/30/17 04:00 86 01/30/17 03:00 76 01/30/17 03:00 98.8 87 16 139/57 97 01/30/17 02:00 82 01/30/17 01:00 82 01/30/17 00:00 82 01/29/17 23:00 81 01/29/17 23:00 99.0 80 18 145/66 95 01/29/17 22:06 21 01/29/17 22:00 76 01/29/17 21:00 78 01/29/17 20:00 80 01/29/17 19:00 98.8 82 18 141/58 98 01/29/17 19:00 77 01/29/17 18:01 56 01/29/17 17:01 77 01/29/17 16:00 80 01/29/17 15:15 98.3 79 18 141/64 96 01/29/17 15:01 82 01/29/17 14:00 80 01/29/17 13:00 76 01/29/17 12:01 74 01/29/17 11:30 98.6 80 18 128/53 96 01/29/17 11:00 82 01/29/17 10:00 94 01/29/17 09:00 86 01/29/17 08:30 98.6 90 18 127/58 97 01/29/17 08:11 93 21 01/29/17 08:00 84 01/29/17 07:01 87 01/29/17 06:00 84 01/29/17 05:00 84 01/29/17 04:00 80 01/29/17 03:00 98.8 85 16 134/55 96 01/29/17 03:00 87 01/29/17 02:00 86 01/29/17 01:00 84 01/29/17 00:00 86 01/28/17 23:00 90 01/28/17 23:00 99.7 84 24 124/51 95 01/28/17 22:00 82 01/28/17 21:00 88 01/28/17 20:00 82 01/28/17 19:00 99.7 84 22 136/51 96 01/28/17 19:00 85 01/28/17 18:01 86 01/28/17 17:01 82 01/28/17 16:15 98.5 82 18 124/47 99 01/28/17 16:00 78 01/28/17 15:00 78 01/28/17 14:00 78 01/28/17 13:00 84 01/28/17 12:01 92 01/28/17 11:15 98.5 84 18 134/55 94 01/28/17 11:00 85 Discharge Condition: Good Discharge Disposition: Disch w/ Home Health Serv Discharge Instructions: Follow up in 2W in our out patient clinic with a surveillance HEATHER Follow up w/ PCP in 2W Add Plavix/ASA to daily medication regimen Leave incisions open to air Do not apply any creams or ointments to incisions NO TUB baths MAY shower NO swimming in a pool or ocean until incisions are fully healed Call the office with any questions or concerns Darlene ZIMMER [facility] [phone] Any questions or concerns: Call [facility] Heart and Vascular Surgery at [facility] [phone] Darlene Means Jan 31, 2017 10:04
--- NOTE | 2017-01-31 11:43 | HHI.NPPN ---
Subjective History of Present Illness The patient is a 81 yo male who was transferred from [facility] to this facility today for vascular intervention of LLE. According to records from [facility] , he had a stent placed in [facility] in November with angioplasty of LLE that was unsuccessful. He was treated medically as outpatient, but he returned to the ED at [facility] with complaints of worsening pain. He has subsequently been transferred to this facility for vascular surgery to attempt to salvage LLE. We have been consulted for dialysis management. Dialyzes TTS via [facility] in [place] with primary health psychologist, Dr. Sterling. Interval History Patient seen during dialysis. No verbal complaints. Access is working well. Has been cleared for discharge by vascular surgery. Review of Systems Respiratory Lungs: Cough, Sputum Objective Data Data 01/30/17 01/31/17 19:00 07:00 Intake Total 758 ml 240 ml Output Total 400 ml Balance 758 ml -160 ml Intake Oral 480 ml 240 ml IV Total 278 ml Output Urine Total 400 ml # Voids 1 1 Vital Signs Date Time Temp Pulse Resp B/P Pulse Ox O2 Delivery O2 Flow Rate FiO2 01/31/17 08:00 97.5 84 18 134/57 100 01/31/17 04:00 98.0 80 18 140/56 95 01/30/17 23:37 98.1 85 18 146/60 95 01/30/17 20:00 98.4 82 18 152/64 95 01/30/17 17:00 75 01/30/17 16:00 75 01/30/17 15:00 98.3 86 20 144/53 97 01/30/17 15:00 83 01/30/17 14:00 87 01/30/17 13:00 88 01/30/17 12:00 76 -: 01/31/17 0628 01/29/17 0808 Tubes & Lines: Perma-Cath Physical Exam General Appearance: No Acute Distress, Comfortable Eyes Eye Exam: Sclera White Pulmonary Resp Exam: Breath Sounds Equal, No Distress, Decreased Bases Cardiology CV Exam: Regular, Normal Sinus Rhythm, Good Perfusion Gastrointestinal/Abdomen GI Exam: Soft, Non-Tender Extremeties Extremities Exam: No Edema Neurologic Neuro Exam: Alert, Awake Psychiatric Psych Exam: Appropriate Responses Assessment/Plan Discussed Condition With: Patient, Son Problem List: (1) ESRD (end stage renal disease) on dialysis Plan: Patient seen on dialysis today. Hemanalysis PermCath is working well. Goal of about 2000 mL UF today. Patient will return to the care of his outpatient health psychologist post discharge. We'll defer to that health psychologist regarding evaluation of his malfunctioning AV dialysis shunt. Medications should be adjusted for the patient's ESRD. Avoid gadolinium. (2) Ischemia of lower extremity Plan: Management as per vascular surgery (3) Diabetes mellitus Plan: Management as per primary (4) Anemia Plan: Continue Epogen with dialysis. Repeat CBC a.m. Will defer to primary if transfusion necessary. Plan The exam, history, and the medical decision-making described in the above note were completed with the assistance of the SERAFIN. I reviewed and agree with the findings presented. I attest that I had a [id number] encounter with the patient on the same day, and personally performed and documented my assessment and findings in the medical record. Niru Long MD Jan 31, 2017 11:43
[2017-01-31] MEDS: HEPARIN SODIUM - IV 10,000 UNITS/10 ML VIAL PRN (11:57)
[2017-01-31] MEDS: GENTAMICIN SULFATE (DIALYSIS USE ONLY) 20 MG/2 ML VIAL IV PRN (11:57)
[2017-01-31 13:36] VITALS: O2SAT 93
[2017-01-31 14:24] VITALS: BP 138/78; PULSE 84; RESP 18; TEMP 97.8; O2SAT 98
== END 2017-01-31 15:20 | disposition home health service (06) | DRG 252 ==
LOC: HCIS 15:38 → HOCA 01-30 18:03
PROVIDERS: ADMIT Surgery; ATTEND Surgery
PROC: 05HM33Z Insertion of Infusion Device into Right Internal Jugular Vein, Percutaneous Approach (ICD-10-PCS; 2017-01-24)
PROC: B513ZZA Fluoroscopy of Right Jugular Veins, Guidance (ICD-10-PCS; 2017-01-24)
PROC: 5A1D60Z (ICD-10-PCS; 2017-01-24)
PROC: B41D1ZZ Fluoroscopy of Aorta and Bilateral Lower Extremity Arteries using Low Osmolar Contrast (ICD-10-PCS; 2017-01-26)
PROC: 041L0KQ Bypass Left Femoral Artery to Lower Extremity Artery with Nonautologous Tissue Substitute, Open Approach (ICD-10-PCS; principal; 2017-01-26 13:43)
PROC: 05HM33Z Insertion of Infusion Device into Right Internal Jugular Vein, Percutaneous Approach (ICD-10-PCS; 2017-01-27)
PROC: 05PYX3Z Removal of Infusion Device from Upper Vein, External Approach (ICD-10-PCS; 2017-01-27)
DX: E11.51 Type 2 diabetes mellitus with diabetic peripheral angiopathy without gangrene (principal); N18.6 End stage renal disease; I12.0 Hypertensive chronic kidney disease with stage 5 chronic kidney disease or end stage renal disease; T82.898A Other specified complication of vascular prosthetic devices, implants and grafts, initial encounter; E11.22 Type 2 diabetes mellitus with diabetic chronic kidney disease; Z79.4 Long term (current) use of insulin; I77.1 Stricture of artery; E87.5 Hyperkalemia; D63.1 Anemia in chronic kidney disease; Z99.2 Dependence on renal dialysis; N40.0 Benign prostatic hyperplasia without lower urinary tract symptoms; E78.5 Hyperlipidemia, unspecified
CPT/HCPCS: 36556; 36558; 71020; 76000; 76937; 77001; 80048; 80069; 82306; 82728; 82948; 83540; 83550; 83970; 85027; 85610; 85730; 86850; 86900; 86901; 86920; 90935; 93922; 93970; 93998; 96374; 96375; 99152; C1750; C1752; C1769; J0690; J1580; J1644; J2250; J2270; J2370; J2710; J2720; J3010; J3370; J7030; J7040; J7050; Q4081; Q9967